=== PATIENT | female | born 1955 | race Caucasian/White ===

== ENCOUNTER → 2017-01-05 | Outpatient (CLI) | payer OTHER ==
--- NOTE | 2017-01-05 16:19 | XR ---
EXAMINATION TYPE: XR chest 2V DATE OF EXAM: 01/05/2017 4:08 PM COMPARISON: Prior chest x-ray October 13, 2011. HISTORY: Back spasms and pain. TECHNIQUE: Frontal and lateral views of the chest are obtained. FINDINGS: There is no focal air space opacity, pleural effusion, or pneumothorax seen. The cardiac silhouette size is within normal limits. Atherosclerotic change in aortic knob is present. The osseo us structures are intact. IMPRESSION: No acute cardiopulmonary process.
--- NOTE | 2017-01-05 16:20 | XR ---
EXAMINATION TYPE: XR thoracic spine complete DATE OF EXAM: 01/05/2017 4:08 PM CLINICAL HISTORY: Mid back pain TECHNIQUE: Frontal, lateral, and swimmer's view of thoracic spine are obtained. COMPARISON: None. FINDINGS: Thoracic spine show slight S-shaped scoliotic curvature without evidence of acute fracture or dislocation. Vertebral body heights and disc space heights are preserved. Mild to moderate multil evel anterior and lateral spurring is present. Visualized ribs are unremarkable bilaterally. IMPRESSION: Slight S-shaped scoliotic curvature with mild to moderate multilevel spurring.
== END | disposition home or self-care (01) ==
LOC: RADXRMAIN 15:40
PROVIDERS: ATTEND Family Medicine
DX: M41.9 Scoliosis, unspecified (principal); M46.04 Spinal enthesopathy, thoracic region; M54.6 Pain in thoracic spine
CPT/HCPCS: 71020; 72072

== ENCOUNTER 2017-08-19 16:28 | Observation (INO) | payer OTHER ==
[2017-08-19] MEDS ORDERED: SODIUM CHLORIDE 0.9% 1,000 ML IV STA (16:51)
[2017-08-19] MEDS ORDERED: NITROGLYCERIN SL TABS 0.4 MG TAB SUBLINGUAL STA (16:51)
[2017-08-19] MEDS ORDERED: ASPIRIN 81 MG PO STA (16:51)
--- NOTE | 2017-08-19 16:55 | ED ---
Chest Pain HPI - General Chief Complaint: Chest Pain Stated Complaint: chest pain Time Seen by Provider: 08/19/17 16:39 Source: patient, RN notes reviewed Mode of arrival: wheelchair Limitations: no limitations - History of Present Illness Initial Comments: This is a 61-year-old female who was a former smoker who states she quit 6 years ago who states she's been having some left-sided chest heaviness also some sharp left shoulder pain and back pain over last 1-2 days. She has had some shortness of breath with that she's had palpitations for 2 days no fevers chills nausea is ongoing sweats she states was shoulder pain is worse with certain movements of her head and neck. She's had no cough no phlegm production no other complaints. No prior history of heart or lung disease that she is aware of. MD Complaint: chest pain, other - Related Data Home Medications Medication Instructions Recorded Confirmed Omeprazole [PriLOSEC] 20 mg PO QAM 10/21/16 08/19/17 ALPRAZolam [Xanax] 0.5 mg PO BID PRN 08/19/17 08/19/17 Atorvastatin Calcium [Lipitor] 20 mg PO HS 08/19/17 08/19/17 Citalopram Hydrobromide [CeleXA] 20 mg PO QAM 08/19/17 08/19/17 Zolpidem [Ambien] 10 mg PO HS PRN 08/19/17 08/19/17 Allergies Allergy/AdvReac Type Severity Reaction Status Date / Time venom-honey bee Allergy Dyspnea/Itc Verified 08/19/17 16:55 [bee venom (honey bee)] elizabet Review of Systems ROS Statement: Those systems with pertinent positive or pertinent negative responses have been documented in the HPI. ROS Other: All systems not noted in ROS Statement are negative. EKG Findings - EKG Results: EKG: interpreted by SHIRLEY, sinus rhythm (Sinus rhythm with a rate 95. Interval 162 QRS duration 80 daily since QTC of 352/442 this is a normal-appearing EKG.) Past Medical History Past Medical History: GERD/Reflux, Hyperlipidemia Additional Past Medical History / Comment(s): Hx Endometriosis History of Any Multi-Drug Resistant Organisms: None Reported Past Surgical History: Hysterectomy, Joint Replacement, Orthopedic Surgery, Tonsillectomy, Tubal Ligation Additional Past Surgical History / Comment(s): 10/27/16 total L knee arthroplasty. Other surgical hx: 02/15/16 LEFT KNEE ARTHROSCOPY. Laparoscopy, D&C, BLADDER SUSPENSION Past Anesthesia/Blood Transfusion Reactions: No Reported Reaction Additional Past Anesthesia/Blood Transfusion Reaction / Comment(s): VERY ANXIOUS WITH THE ANTICIPATION OF A SPINAL. Past Psychological History: Depression Smoking Status: Former smoker Past Alcohol Use History: Rare Past Drug Use History: None Reported - Past Family History Father Family Medical History: CVA/TIA Sister(s) Family Medical History: Cancer, Musculoskeletal Disorder Additional Family Medical History / Comment(s): Maternal Grandmother-Throat cancer General Exam - General Exam Comments Initial Comments: This is a well-developed well-nourished awake alert oriented 3 female Limitations: no limitations General appearance: alert, anxious Head exam: Present: atraumatic, normocephalic, normal inspection Eye exam: Present: normal appearance, PERRL, EOMI. Absent: scleral icterus, conjunctival injection, periorbital swelling ENT exam: Present: normal exam, mucous membranes moist Neck exam: Present: normal inspection, tenderness (Some tenderness palpation of the left trapezius musculature which does reproduce the pain in her neck), full ROM. Absent: meningismus, lymphadenopathy Respiratory exam: Present: normal lung sounds bilaterally, chest wall tenderness. Absent: respiratory distress, wheezes, rales, rhonchi, stridor Cardiovascular Exam: Present: normal rhythm, tachycardia, normal heart sounds. Absent: systolic murmur, diastolic murmur, rubs, gallop, clicks GI/Abdominal exam: Present: soft, normal bowel sounds. Absent: distended, tenderness, guarding, rebound, rigid Extremities exam: Present: normal inspection, full ROM, normal capillary refill. Absent: tenderness, pedal edema, joint swelling, calf tenderness Back exam: Present: normal inspection Neurological exam: Present: alert, oriented X3, CN II-XII intact Psychiatric exam: Present: normal affect, normal mood Skin exam: Present: warm, dry, intact, normal color. 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 She is feeling somewhat diaphoretic. X-ray was negative. I did discuss findings her and her family patient will be admitted for evaluation by cardiology. I did discuss case with Dr. Womack Critical Care Time Critical Care Time: Yes Critical Care Time: 31 minutes of critical care time which includes initial presentation with history physical labs x-rays reevaluation of the patient response to therapy. Discussed with the patient family regarding the findings. Discussed with the admitting physician admission orders and documentation of the above Disposition Clinical Impression: Unstable angina pectoris, Chest pain Disposition: ADMITTED IP TO THIS [facility] Condition: Stable Referrals: Jose Womack DO [Primary Care Provider] - 1-2 days
[2017-08-19 17:04] LABS: Basophils # (A) 0.1 k/uL (0-0.2); Basophils % (A) 1 %; CHCM 35.5; Eosinophils # (A) 0.1 k/uL (0-0.7); Eosinophils % (A) 1 %; HCT 43.8 % (34.0-46.0); HGB 14.8 gm/dL (11.4-16.0); Luc # (Auto) 0.07; Luc % (Auto) 1; Lymphocytes # (A) 3.1 k/uL (1.0-4.8); Lymphocytes % (A) 28 %; MCH 32.6 pg (25.0-35.0); MCHC 33.8 g/dL (31.0-37.0); MCV 96.4 fL (80.0-100.0); Mean Platelet Volume 7.5; Monocytes # (A) 0.3 k/uL (0-1.0); Monocytes % (A) 3 %; Neutrophils # (A) 7.4 k/uL (1.3-7.7); Neutrophils % (A) 66 %; RBC 4.54 m/uL (3.80-5.40); RDW 13.2 % (11.5-15.5); WBC 11.1 k/uL (3.8-10.6); WBC (Perox) 10.71
[2017-08-19 17:14] LABS: ALT 40 U/L (9-52); AST 31 U/L (14-36); Alkaline Phosphatase 97 U/L (38-126); Anion Gap 15 mmol/L; Blood Urea Nitrogen 20 mg/dL (7-17); Calcium 9.5 mg/dL (8.4-10.2); Carbon Dioxide 19 mmol/L (22-30); Chloride 106 mmol/L (98-107); Glucose 160 mg/dL (74-99); Magnesium 1.9 mg/dL (1.6-2.3); Non-African American GFR(MDRD) >60 (>60 ml/min/1.73 sqM); Potassium 4.1 mmol/L (3.5-5.1); Sodium 140 mmol/L (137-145); Total Bilirubin 0.3 mg/dL (0.2-1.3); Total Protein 7.5 g/dL (6.3-8.2)
[2017-08-19 17:17] LABS: Creatine Kinase 53 U/L (30-135)
[2017-08-19 17:23] LABS: Partial Thromboplastin Time 22.5 sec (22.0-30.0); Prothrombin Time 10.1 sec (9.0-12.0)
[2017-08-19 17:29] LABS: Creatine Kinase MB 0.8 ng/mL (0.0-2.4); Troponin I <0.012 ng/mL (0.000-0.034)
--- NOTE | 2017-08-19 17:45 | XR ---
EXAMINATION TYPE: XR chest 2V DATE OF EXAM: 08/19/2017 COMPARISON: 01/05/2017 HISTORY: Left-sided chest pain and dyspnea TECHNIQUE: Frontal and lateral views of the chest are obtained. FINDINGS: There is no focal air space opacity, pleural effusion, or pneumothorax seen. The cardiac silhouette size is within normal limits. The osseous structures are intact. IMPRESSION: No acute cardiopulmonary process.
[2017-08-19] MEDS ORDERED: NITROGLYCERIN SL TABS 0.4 MG TAB SUBLINGUAL PRN (18:10)
[2017-08-19] MEDS ORDERED: ZOLPIDEM 10 MG TAB PO PRN (18:13)
[2017-08-19] MEDS ORDERED: ALPRAZolam 0.5 MG TAB PO PRN (18:13)
[2017-08-19] MEDS ORDERED: HEPARIN SODIUM,PORCINE/D5W PMX 25,000 UNIT in DEXTROSE/WATER 1 500ML.BAG IV SCH (18:15)
[2017-08-19] MEDS ORDERED: SODIUM CHLORIDE 0.9% 1,000 ML IV SCH (18:15)
[2017-08-19] MEDS: HEPARIN SODIUM,PORCINE 5,000 UNIT/ML 1 ML VIAL IV ONE (18:30)
[2017-08-19] MEDS ORDERED: ATORVASTATIN 20 MG TAB PO SCH (21:00)
[2017-08-19 23:18] LABS: Creatine Kinase 43 U/L (30-135)
[2017-08-19 23:32] LABS: Creatine Kinase MB 0.6 ng/mL (0.0-2.4); Troponin I <0.012 ng/mL (0.000-0.034)
[2017-08-20] MEDS: NITROGLYCERIN OINT 1 INCH/GM PACKET TOPICAL SCH ×3 (00:44→14:25)
[2017-08-20] MEDS ORDERED: HEPARIN SODIUM,PORCINE 5,000 UNIT/ML 1 ML VIAL IV PRN (04:02)
[2017-08-20] MEDS: HEPARIN SODIUM,PORCINE 5,000 UNIT/ML 1 ML VIAL IV ONE (04:02)
[2017-08-20 06:16] LABS: Basophils % (A) 1 %; CH 33.6; CHCM 34.1; Eosinophils # (A) 0.1 k/uL (0-0.7); Eosinophils % (A) 1 %; HCT 41.2 % (34.0-46.0); HDW 2.46; HGB 13.4 gm/dL (11.4-16.0); Luc # (Auto) 0.11; Luc % (Auto) 1; Lymphocytes % (A) 46 %; MCH 32.2 pg (25.0-35.0); MCHC 32.4 g/dL (31.0-37.0); MCV 99.2 fL (80.0-100.0); Mean Platelet Volume 7.3; Monocytes # (A) 0.3 k/uL (0-1.0); Monocytes % (A) 4 %; Neutrophils # (A) 4.1 k/uL (1.3-7.7); Neutrophils % (A) 47 %; RBC 4.16 m/uL (3.80-5.40); RDW 13.4 % (11.5-15.5); WBC 8.7 k/uL (3.8-10.6); WBC (Perox) 7.93
[2017-08-20 06:24] LABS: Cholesterol 188 mg/dL (<200); HDL Cholesterol 53 mg/dL (40-60)
[2017-08-20 06:42] LABS: Creatine Kinase 40 U/L (30-135)
[2017-08-20 06:53] LABS: Creatine Kinase MB 0.6 ng/mL (0.0-2.4); Troponin I <0.012 ng/mL (0.000-0.034)
[2017-08-20] MEDS ORDERED: PANTOPRAZOLE 40 MG TABLET PO SCH (07:30)
[2017-08-20 08:12] VITALS: RESP 18
[2017-08-20] MEDS ORDERED: DOBUTamine DRIP for NUC MED 500 MG in DEXTROSE/WATER 1 250ML.BAG IV ONE (08:38)
--- NOTE | 2017-08-20 08:47 | P.CRDCN ---
History of Present Illness History of present illness: 61-year-old female presenting with fluttering in the chest and associated chest discomfort and dizziness but no loss of consciousness. Normal cardiac enzymes normal. ECG history of dyslipidemia no arrhythmias documented at this time. Normal cardiac enzymes normal D-dimer test Suggest TSH level Dobutamine stress echo today to look for any underlying ischemia as well as possibly trigger any arrhythmias to make a diagnosis. If this is normal then an event monitor as an outpatient and the patient has been instructed tract with the monitor and she has the palpitations Past Medical History Past Medical History: GERD/Reflux, Hyperlipidemia, Osteoarthritis (OA) Additional Past Medical History / Comment(s): Hx Endometriosis, diverticulitis" i always have diarrhea" History of Any Multi-Drug Resistant Organisms: None Reported Past Surgical History: Hysterectomy, Joint Replacement, Orthopedic Surgery, Tonsillectomy, Tubal Ligation Additional Past Surgical History / Comment(s): 10/27/16 total L knee arthroplasty. Other surgical hx: 02/15/16 LEFT KNEE ARTHROSCOPY. Laparoscopy, D&C, BLADDER SUSPENSION Past Anesthesia/Blood Transfusion Reactions: No Reported Reaction Additional Past Anesthesia/Blood Transfusion Reaction / Comment(s): VERY ANXIOUS WITH THE ANTICIPATION OF A SPINAL. Smoking Status: Former smoker - Past Family History Father Family Medical History: CVA/TIA Sister(s) Family Medical History: Cancer, Musculoskeletal Disorder Additional Family Medical History / Comment(s): Maternal Grandmother-Throat cancer Medications and Allergies Home Medications Medication Instructions Recorded Confirmed Type Omeprazole [PriLOSEC] 20 mg PO QAM 10/21/16 08/19/17 History ALPRAZolam [Xanax] 0.5 mg PO BID PRN 08/19/17 08/19/17 History Atorvastatin Calcium [Lipitor] 20 mg PO HS 08/19/17 08/19/17 History Citalopram Hydrobromide [CeleXA] 30 mg PO QAM 08/19/17 08/19/17 History Zolpidem [Ambien] 10 mg PO HS 08/19/17 08/19/17 History Allergies Allergy/AdvReac Type Severity Reaction Status Date / Time venom-honey bee Allergy Dyspnea/Itc Verified 08/19/17 16:55 [bee venom (honey bee)] elizabet Physical Exam Vitals: Vital Signs Temp Pulse Pulse Pulse Resp BP BP 08/20/17 08:00 97.8 F 69 18 110/63 08/20/17 04:00 16 08/20/17 03:40 97.7 F 68 16 123/64 08/20/17 00:00 98.0 F 71 16 137/75 08/19/17 23:00 16 08/19/17 21:41 97.6 F 69 18 153/62 08/19/17 21:17 97.6 F 69 18 126/56 08/19/17 19:19 80 18 111/63 08/19/17 18:39 80 18 113/64 08/19/17 18:08 74 18 106/65 08/19/17 17:30 92 18 121/61 08/19/17 17:07 88 20 117/75 08/19/17 16:53 88 08/19/17 16:30 97.1 F L 102 H 18 145/71 Pulse Ox 08/20/17 08:00 98 08/20/17 04:00 08/20/17 03:40 98 08/20/17 00:00 98 08/19/17 23:00 08/19/17 21:41 96 08/19/17 21:17 98 08/19/17 19:19 96 08/19/17 18:39 99 08/19/17 18:08 98 08/19/17 17:30 98 08/19/17 17:07 99 08/19/17 16:53 08/19/17 16:30 99 Intake and Output 08/19/17 08/20/17 08/20/17 22:59 06:59 14:59 Other: # Voids 1 Weight 74.843 kg Results 08/20/17 05:26 08/19/17 16:40 Cardiac Enzymes 08/19/17 08/19/17 08/19/17 Range/Units 16:40 16:40 22:37 AST 31 (14-36) U/L CK-MB (CK-2) 0.8 0.6 (0.0-2.4) ng/mL Troponin I <0.012 <0.012 (0.000-0.034) ng/mL 08/20/17 Range/Units 05:26 AST (14-36) U/L CK-MB (CK-2) 0.6 (0.0-2.4) ng/mL Troponin I <0.012 (0.000-0.034) ng/mL Coagulation 08/19/17 08/20/17 Range/Units 16:40 01:06 PT 10.1 (9.0-12.0) sec APTT 22.5 31.8 H (22.0-30.0) sec Lipids 08/20/17 Range/Units 05:26 Triglycerides 238 H (<150) mg/dL Cholesterol 188 (<200) mg/dL HDL Cholesterol 53 (40-60) mg/dL CBC 08/19/17 08/20/17 Range/Units 16:40 05:26 WBC 11.1 H 8.7 (3.8-10.6) k/uL RBC 4.54 4.16 (3.80-5.40) m/uL Hgb 14.8 13.4 (11.4-16.0) gm/dL Hct 43.8 41.2 (34.0-46.0) % Plt Count 356 287 (150-450) k/uL Comprehensive Metabolic Panel 08/19/17 Range/Units 16:40 Sodium 140 (137-145) mmol/L Potassium 4.1 (3.5-5.1) mmol/L Chloride 106 (98-107) mmol/L Carbon Dioxide 19 L (22-30) mmol/L BUN 20 H (7-17) mg/dL Creatinine 0.89 (0.52-1.04) mg/dL Glucose 160 H (74-99) mg/dL Calcium 9.5 (8.4-10.2) mg/dL AST 31 (14-36) U/L ALT 40 (9-52) U/L Alkaline Phosphatase 97 (38-126) U/L Total Protein 7.5 (6.3-8.2) g/dL Albumin 4.4 (3.5-5.0) g/dL Current Medications Generic Name Dose Route Start Last Admin Trade Name Freq PRN Reason Stop Dose Admin Alprazolam 0.5 mg 08/19/17 18:13 08/19/17 23:08 Xanax PO 0.5 mg BID PRN Administration Anxiety Aspirin 325 mg 08/20/17 09:00 Aspirin PO DAILY YESSICA Atorvastatin Calcium 20 mg 08/19/17 21:00 08/19/17 23:08 Lipitor PO 20 mg HS YESSICA Administration Citalopram Hydrobromide 20 mg 08/20/17 09:00 Celexa PO QAM YESSICA Heparin Sodium (Porcine) 0 unit 08/20/17 04:02 Heparin IV PER PROTOCOL PRN Low PTT Protocol Heparin Sodium/Dextrose 25,000 500 mls @ 17.96 mls/hr 08/19/17 18:15 18:30 unit/ IV Solution IV 12 units/kg/hr .Q24H YESSICA 17.96 mls/hr Protocol Administration 12 UNITS/KG/HR Sodium Chloride 1,000 mls @ 20 mls/hr 08/19/17 18:15 08/19/17 18:41 Saline 0.9% IV 20 mls/hr .Q24H YESSICA Administration Nitroglycerin 1 inch 08/20/17 00:00 08/20/17 00:44 Nitro-Bid Oint TOPICAL Not Given Q6HR [facility] Nitroglycerin 0.4 mg 08/19/17 18:10 Nitrostat SUBLINGUAL Q5M PRN Chest Pain Pantoprazole Sodium 40 mg 08/20/17 07:30 Protonix PO AC-BRKFST [facility] Zolpidem Tartrate 10 mg 08/19/17 18:13 08/19/17 23:08 Ambien PO 10 mg HS PRN Administration Insomnia Intake and Output 08/19/17 08/20/17 08/20/17 22:59 06:59 14:59 Other: # Voids 1 Weight 74.843 kg 08/20/17 05:26 08/19/17 16:40
[2017-08-20] MEDS ORDERED: ASPIRIN 325 MG TAB PO SCH (09:00)
[2017-08-20] MEDS ORDERED: CITALOPRAM HYDROBROMIDE 20 MG TAB PO SCH (09:00)
--- NOTE | 2017-08-20 10:36 | ECHOS ---
STRESS ECHOCARDIOGRAM INDICATIONS: Chest pain. MEDICATIONS:: Prilosec, Lipitor, Xanax, Ambien, Celexa. BASELINE HEART RATE: 65 BASELINE BLOOD PRESSURE: 103/57 MAXIMUM HEART RATE: 131 MAXIMUM BLOOD PRESSURE: 185/69 85% MPHR: 133 100% MPHR: 157 MAXIMUM STAGE REACHED: 3 TOTAL EXERCISE TIME: 8:30 CLINICAL INFORMATION: Patient presented with recurrent chest discomfort and palpitations, normal cardiac enzymes. Baseline heart rate is 65 beats per minute. Baseline blood pressure 103/57 mmHg. Baseline 12-lead ECG shows sinus rhythm with early repolarization abnormality in the high lateral leads. Normal QRS, normal GA interval. Patient received dobutamine infusion per protocol, 30 mcg. Peak heart rate was 131 beats per minute. Normal blood pressure response to exercise. Somewhat blunted heart rate response initially. The patient experienced occasional PVCs and she failed every single PVC and it was similar to her admitting complaints. There was no ECG evidence for ischemia. No evidence for sustained or nonsustained arrhythmias. The baseline 2D echo showed normal LV sinus and systolic function without segmental wall motion abnormalities. During dobutamine infusion, there was a stepwise increment in overall LV contractility without developing of any wall motion abnormality. At recovery, regional global LV systolic function remained normal. IMPRESSION: 1. No ECG or echocardiographic evidence of ischemia. Occasional ventricular premature beats noted which were felt by the patient. 2. Nonsustained arrhythmias. PLAN: Suggest follow up with Dr. Dodd and event monitoring for at least 1 month to document any further ambient arrhythmias. MMODL / IJN: [id number] /
[2017-08-20 11:23] VITALS: BP 155/66; PULSE 73; TEMP 97.5
--- NOTE | 2017-08-20 11:44 | P.CRDCN ---
History of Present Illness Consult date: 08/20/17 History of present illness: This is a 61-year-old pleasant female. Past medical history significant for hyperlipidemia and former smoker. The patient presented to the hospital yesterday with complaints of sharp and heavy left-sided chest pain with radiation to the back and left shoulder. She states this was associated with mild shortness of breath. The symptoms have been intermittent over the past 2-3 days. They're not associated with exertion or activity. She can't specify no specific aggravating or alleviating factors. She follows regularly with her primary care physician. She states she has never had a stress test. 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 She cannot remember the specifics of the findings. Troponin negative 3 EKG normal sinus mechanism d-dimer negative. Upon exam she continues to feel mild mid-sternal chest heaviness. Telemetry overnight indicates sinus rhythm with first degree AVB. Review of Systems Extensive review of systems performed, negative except mentioned in HPI. Past Medical History Past Medical History: GERD/Reflux, Hyperlipidemia, Osteoarthritis (OA) Additional Past Medical History / Comment(s): Hx Endometriosis, diverticulitis" i always have diarrhea" History of Any Multi-Drug Resistant Organisms: None Reported Past Surgical History: Hysterectomy, Joint Replacement, Orthopedic Surgery, Tonsillectomy, Tubal Ligation Additional Past Surgical History / Comment(s): 10/27/16 total L knee arthroplasty. Other surgical hx: 02/15/16 LEFT KNEE ARTHROSCOPY. Laparoscopy, D&C, BLADDER SUSPENSION Past Anesthesia/Blood Transfusion Reactions: No Reported Reaction Additional Past Anesthesia/Blood Transfusion Reaction / Comment(s): VERY ANXIOUS WITH THE ANTICIPATION OF A SPINAL. Smoking Status: Former smoker - Past Family History Father Family Medical History: CVA/TIA Sister(s) Family Medical History: Cancer, Musculoskeletal Disorder Additional Family Medical History / Comment(s): Maternal Grandmother-Throat cancer Medications and Allergies Home Medications Medication Instructions Recorded Confirmed Type Omeprazole [PriLOSEC] 20 mg PO QAM 10/21/16 08/19/17 History ALPRAZolam [Xanax] 0.5 mg PO BID PRN 08/19/17 08/19/17 History Atorvastatin Calcium [Lipitor] 20 mg PO HS 08/19/17 08/19/17 History Citalopram Hydrobromide [CeleXA] 30 mg PO QAM 08/19/17 08/19/17 History Zolpidem [Ambien] 10 mg PO HS 08/19/17 08/19/17 History Allergies Allergy/AdvReac Type Severity Reaction Status Date / Time venom-honey bee Allergy Dyspnea/Itc Verified 08/19/17 16:55 [bee venom (honey bee)] elizabet Physical Exam Vitals: Vital Signs Temp Pulse Pulse Pulse Resp BP BP 08/20/17 08:00 97.8 F 69 18 110/63 08/20/17 04:00 16 08/20/17 03:40 97.7 F 68 16 123/64 08/20/17 00:00 98.0 F 71 16 137/75 08/19/17 23:00 16 08/19/17 21:41 97.6 F 69 18 153/62 08/19/17 21:17 97.6 F 69 18 126/56 08/19/17 19:19 80 18 111/63 08/19/17 18:39 80 18 113/64 08/19/17 18:08 74 18 106/65 08/19/17 17:30 92 18 121/61 08/19/17 17:07 88 20 117/75 08/19/17 16:53 88 08/19/17 16:30 97.1 F L 102 H 18 145/71 Pulse Ox 08/20/17 08:00 98 08/20/17 04:00 08/20/17 03:40 98 08/20/17 00:00 98 08/19/17 23:00 08/19/17 21:41 96 08/19/17 21:17 98 08/19/17 19:19 96 08/19/17 18:39 99 08/19/17 18:08 98 08/19/17 17:30 98 08/19/17 17:07 99 08/19/17 16:53 08/19/17 16:30 99 Intake and Output 08/19/17 08/20/17 08/20/17 22:59 06:59 14:59 Other: # Voids 1 Weight 74.843 kg GENERAL: This is a 61-year-old female in no apparent distress at the time of my examination. HEENT: Head is atraumatic, normocephalic. Pupils are equal, round. Sclerae anicteric. Conjunctivae are clear. Mucous membranes of the mouth are moist. Neck is supple. There is no jugular venous distention. No carotid bruit is heard. LUNGS: Clear to auscultation no wheezes, rales or rhonchi. No chest wall tenderness is noted on palpation or with deep breathing. HEART: Regular rate and rhythm without murmurs, rubs or gallops. S1 and S2 heard. ABDOMEN: Soft, nontender. Bowel sounds are heard. No organomegaly noted. EXTREMITIES: 2+ peripheral pulses with no evidence of peripheral edema and no calf tenderness noted. NEUROLOGIC: Patient is awake, alert and oriented x3. Results 08/20/17 05:26 08/19/17 16:40 Cardiac Enzymes 08/19/17 08/19/17 08/19/17 Range/Units 16:40 16:40 22:37 AST 31 (14-36) U/L CK-MB (CK-2) 0.8 0.6 (0.0-2.4) ng/mL Troponin I <0.012 <0.012 (0.000-0.034) ng/mL 08/20/17 Range/Units 05:26 AST (14-36) U/L CK-MB (CK-2) 0.6 (0.0-2.4) ng/mL Troponin I <0.012 (0.000-0.034) ng/mL Coagulation 08/19/17 08/20/17 Range/Units 16:40 01:06 PT 10.1 (9.0-12.0) sec APTT 22.5 31.8 H (22.0-30.0) sec Lipids 08/20/17 Range/Units 05:26 Triglycerides 238 H (<150) mg/dL Cholesterol 188 (<200) mg/dL HDL Cholesterol 53 (40-60) mg/dL CBC 08/19/17 08/20/17 Range/Units 16:40 05:26 WBC 11.1 H 8.7 (3.8-10.6) k/uL RBC 4.54 4.16 (3.80-5.40) m/uL Hgb 14.8 13.4 (11.4-16.0) gm/dL Hct 43.8 41.2 (34.0-46.0) % Plt Count 356 287 (150-450) k/uL Comprehensive Metabolic Panel 08/19/17 Range/Units 16:40 Sodium 140 (137-145) mmol/L Potassium 4.1 (3.5-5.1) mmol/L Chloride 106 (98-107) mmol/L Carbon Dioxide 19 L (22-30) mmol/L BUN 20 H (7-17) mg/dL Creatinine 0.89 (0.52-1.04) mg/dL Glucose 160 H (74-99) mg/dL Calcium 9.5 (8.4-10.2) mg/dL AST 31 (14-36) U/L ALT 40 (9-52) U/L Alkaline Phosphatase 97 (38-126) U/L Total Protein 7.5 (6.3-8.2) g/dL Albumin 4.4 (3.5-5.0) g/dL Current Medications Generic Name Dose Route Start Last Admin Trade Name Freq PRN Reason Stop Dose Admin Alprazolam 0.5 mg 08/19/17 18:13 08/19/17 23:08 Xanax PO 0.5 mg BID PRN Administration Anxiety Aspirin 325 mg 08/20/17 09:00 Aspirin PO DAILY [facility] Atorvastatin Calcium 20 mg 08/19/17 21:00 08/19/17 23:08 Lipitor PO 20 mg HS YESSICA Administration Citalopram Hydrobromide 20 mg 08/20/17 09:00 Celexa PO QAM [facility] Heparin Sodium (Porcine) 0 unit 08/20/17 04:02 Heparin IV PER PROTOCOL PRN Low PTT Protocol Heparin Sodium/Dextrose 25,000 500 mls @ 17.96 mls/hr 08/19/17 18:15 18:30 unit/ IV Solution IV 12 units/kg/hr .Q24H YESSICA 17.96 mls/hr Protocol Administration 12 UNITS/KG/HR Sodium Chloride 1,000 mls @ 20 mls/hr 08/19/17 18:15 08/19/17 18:41 Saline 0.9% IV 20 mls/hr .Q24H YESSICA Administration Nitroglycerin 1 inch 08/20/17 00:00 08/20/17 00:44 Nitro-Bid Oint TOPICAL Not Given Q6HR [facility] Nitroglycerin 0.4 mg 08/19/17 18:10 Nitrostat SUBLINGUAL Q5M PRN Chest Pain Pantoprazole Sodium 40 mg 08/20/17 07:30 Protonix PO AC-BRKFST YESSICA Zolpidem Tartrate 10 mg 08/19/17 18:13 08/19/17 23:08 Ambien PO 10 mg HS PRN Administration Insomnia Intake and Output 08/19/17 08/20/17 08/20/17 22:59 06:59 14:59 Other: # Voids 1 Weight 74.843 kg 08/20/17 05:26 08/19/17 16:40 EKG Interpretations (text) EKG indicates a normal sinus mechanism with no acute ST or T-wave abnormality. Assessment and Plan Plan: ASSESSMENT 1. Chest pain, atypical 2. Dyslipidemia, maintained on Lipitor PLAN Please see recommendations from Dr. Lu. Nurse Practitioner note has been reviewed, I agree with a documented findings and plan of care. Patient was seen and examined.
--- NOTE | 2017-08-20 13:14 | P.DS ---
Providers Date of admission: 08/19/17 18:10 Attending physician: Jose Womack Consults: 08/19/17 18:10 Consult Physician Urgent Consulting Provider: Jah Zarate Consult Reason/Comments: Chest pain Do you want consulting provider notified?: Yes Primary care physician: Jose Womack Hospital Course: Please refer to my HPI Patient Condition at Discharge: Stable Plan - Discharge Summary New Discharge Prescriptions: No Action Omeprazole [PriLOSEC] 20 mg PO QAM Atorvastatin Calcium [Lipitor] 20 mg PO HS ALPRAZolam [Xanax] 0.5 mg PO BID PRN PRN Reason: Anxiety Zolpidem [Ambien] 10 mg PO HS Citalopram Hydrobromide [CeleXA] 30 mg PO QAM Discharge Medication List Omeprazole [PriLOSEC] 20 mg PO QAM 10/21/16 [History] ALPRAZolam [Xanax] 0.5 mg PO BID PRN 08/19/17 [History] Atorvastatin Calcium [Lipitor] 20 mg PO HS 08/19/17 [History] Citalopram Hydrobromide [CeleXA] 30 mg PO QAM 08/19/17 [History] Zolpidem [Ambien] 10 mg PO HS 08/19/17 [History] Follow up Appointment(s)/Referral(s): Abhishek Dodd MD [STAFF PHYSICIAN] - 1 Week (Appointment is on September 17 @ 9 :15am) Jose Womack DO [Primary Care Provider] - 1-2 days Patient Instructions/Handouts: Chest Pain (GEN) Discharge Disposition: HOME SELF-CARE
--- NOTE | 2017-08-20 13:14 | P.HPIM ---
History of Present Illness This is a 61-year-old pleasant female. Past medical history significant for hyperlipidemia and former smoker. The patient presented to the hospital yesterday with complaints of sharp and heavy left-sided chest pain with radiation to the back and left shoulder. She states this was associated with mild shortness of breath. The symptoms have been intermittent over the past 2-3 days. They're not associated with exertion or activity. She can't specify no specific aggravating or alleviating factors. She follows regularly with her primary care physician. She states she has never had a stress test. She saw make up artist briefly many years ago worn an event monitor. She cannot remember the specifics of the findings. Troponin negative 3 EKG normal sinus mechanism d-dimer negative. Upon exam she continues to feel mild mid-sternal chest heaviness. Telemetry overnight indicates sinus rhythm with first degree AVB. Patient underwent stress us which was negative, because of arrhythmia and palpitations which can cause chest pain and lightheadedness patient will be discharged on even monitor. Follow with some on as an outpatient. Patient chest pain completely resolved at this point of time. Review of Systems REVIEW OF SYSTEMS: CONSTITUTIONAL: No fever, no malaise, no fatigue. HEENT: No recent visual problems or hearing problems. Denied any sore throat. CARDIOVASCULAR: No orthopnea, PND, no syncope. PULMONARY: No shortness of breath, no cough, no hemoptysis. GASTROINTESTINAL: No diarrhea, no nausea, no vomiting, no abdominal pain. Normoactive bowel sounds. NEUROLOGICAL: No headaches, no weakness, no numbness. HEMATOLOGICAL: Denies any bleeding or petechiae. GENITOURINARY: Denies any burning micturition, frequency, or urgency. MUSCULOSKELETAL/RHEUMATOLOGICAL: Denies any joint pain, swelling, or any muscle pain. ENDOCRINE: Denies any polyuria or polydipsia. The rest of the 14-point review of systems is negative. Past Medical History Past Medical History: GERD/Reflux, Hyperlipidemia, Osteoarthritis (OA) Additional Past Medical History / Comment(s): Hx Endometriosis, diverticulitis" i always have diarrhea" History of Any Multi-Drug Resistant Organisms: None Reported Past Surgical History: Hysterectomy, Joint Replacement, Orthopedic Surgery, Tonsillectomy, Tubal Ligation Additional Past Surgical History / Comment(s): 10/27/16 total L knee arthroplasty. Other surgical hx: 02/15/16 LEFT KNEE ARTHROSCOPY. Laparoscopy, D&C, BLADDER SUSPENSION Past Anesthesia/Blood Transfusion Reactions: No Reported Reaction Additional Past Anesthesia/Blood Transfusion Reaction / Comment(s): VERY ANXIOUS WITH THE ANTICIPATION OF A SPINAL. Smoking Status: Former smoker - Past Family History Father Family Medical History: CVA/TIA Sister(s) Family Medical History: Cancer, Musculoskeletal Disorder Additional Family Medical History / Comment(s): Maternal Grandmother-Throat cancer Medications and Allergies Home Medications Medication Instructions Recorded Confirmed Type Omeprazole [PriLOSEC] 20 mg PO QAM 10/21/16 08/19/17 History ALPRAZolam [Xanax] 0.5 mg PO BID PRN 08/19/17 08/19/17 History Atorvastatin Calcium [Lipitor] 20 mg PO HS 08/19/17 08/19/17 History Citalopram Hydrobromide [CeleXA] 30 mg PO QAM 08/19/17 08/19/17 History Zolpidem [Ambien] 10 mg PO HS 08/19/17 08/19/17 History Allergies Allergy/AdvReac Type Severity Reaction Status Date / Time venom-honey bee Allergy Dyspnea/Itc Verified 08/19/17 16:55 [bee venom (honey bee)] elizabet Physical Exam Vitals: Vital Signs Temp Pulse Pulse Pulse Resp BP BP 08/20/17 11:22 97.5 F L 73 18 155/66 08/20/17 08:00 97.8 F 69 18 110/63 08/20/17 04:00 16 08/20/17 03:40 97.7 F 68 16 123/64 08/20/17 00:00 98.0 F 71 16 137/75 08/19/17 23:00 16 08/19/17 21:41 97.6 F 69 18 153/62 08/19/17 21:17 97.6 F 69 18 126/56 08/19/17 19:19 80 18 111/63 08/19/17 18:39 80 18 113/64 08/19/17 18:08 74 18 106/65 08/19/17 17:30 92 18 121/61 08/19/17 17:07 88 20 117/75 08/19/17 16:53 88 08/19/17 16:30 97.1 F L 102 H 18 145/71 Pulse Ox 09/21/17 11:22 97 08/20/17 08:00 98 08/20/17 04:00 08/20/17 03:40 98 08/20/17 00:00 98 08/19/17 23:00 08/19/17 21:41 96 08/19/17 21:17 98 08/19/17 19:19 96 08/19/17 18:39 99 08/19/17 18:08 98 08/19/17 17:30 98 08/19/17 17:07 99 08/19/17 16:53 08/19/17 16:30 99 Intake and Output 08/19/17 08/20/17 08/20/17 22:59 06:59 14:59 Other: # Voids 1 Weight 74.843 kg PHYSICAL EXAMINATION: GENERAL: The patient is alert and oriented x3, not in any acute distress. Well developed, well nourished. HEENT: Pupils are round and equally reacting to light. EOMI. No scleral icterus. No conjunctival pallor. Normocephalic, atraumatic. No pharyngeal erythema. No thyromegaly. CARDIOVASCULAR: S1 and S2 present. No murmurs, rubs, or gallops. PULMONARY: Chest is clear to auscultation, no wheezing or crackles. ABDOMEN: Soft, nontender, nondistended, normoactive bowel sounds. No palpable organomegaly. MUSCULOSKELETAL: No joint swelling or deformity. EXTREMITIES: No cyanosis, clubbing, or pedal edema. NEUROLOGICAL: Gross neurological examination did not reveal any focal deficits. SKIN: No rashes. Results CBC & Chem 7: 08/20/17 05:26 08/19/17 16:40 Labs: Abnormal Lab Results - Last 24 Hours (Table) 08/19/17 08/19/17 08/20/17 Range/Units 16:40 16:40 01:06 WBC 11.1 H (3.8-10.6) k/uL APTT 31.8 H (22.0-30.0) sec Carbon Dioxide 19 L (22-30) mmol/L BUN 20 H (7-17) mg/dL Glucose 160 H (74-99) mg/dL Triglycerides (<150) mg/dL 08/20/17 Range/Units 05:26 WBC (3.8-10.6) k/uL APTT (22.0-30.0) sec Carbon Dioxide (22-30) mmol/L BUN (7-17) mg/dL Glucose (74-99) mg/dL Triglycerides 238 H (<150) mg/dL Thrombosis Risk Factor Assmnt - Choose All That Apply Any of the Below Risk Factors Present?: Yes Each Factor Represents 1 point: Obesity (BMI >25) Other Risk Factors: Yes Each Risk Factor Represents 2 Points: Age 61-74 years Other congenital or acquired thrombophilia - If yes, enter type in comment: No Thrombosis Risk Factor Assessment Total Risk Factor Score: 3 Thrombosis Risk Factor Assessment Level: Moderate Risk Assessment and Plan Plan: #1 chest pain, rule out acute coronary syndromes unstable angina, patient stresses is negative. #2 palpitations nature of arrhythmia is unknown patient is being discharged on even monitor #3 shortness of breath secondary to possibly cardiac arrhythmia. #4 hyperlipidemia #5 osteoarthritis Patient will be discharged today with even monitor.
== END 2017-08-20 14:18 | disposition home or self-care (01) ==
LOC: EC 16:28 → 3OBS 18:10
PROVIDERS: ADMIT Family Medicine; ATTEND Family Medicine
DX: R07.89 Other chest pain (principal); R00.2 Palpitations; R06.02 Shortness of breath; R61 Generalized hyperhidrosis; R42 Dizziness and giddiness; E78.5 Hyperlipidemia, unspecified; I44.0 Atrioventricular block, first degree; M19.90 Unspecified osteoarthritis, unspecified site; K21.9 Gastro-esophageal reflux disease without esophagitis; F32.9 Major depressive disorder, single episode, unspecified; F41.9 Anxiety disorder, unspecified; E66.9 Obesity, unspecified; Z68.25 Body mass index [BMI] 25.0-25.9, adult; Z79.899 Other long term (current) drug therapy; Z91.030 Bee allergy status; Z87.891 Personal history of nicotine dependence; Z82.3 Family history of stroke
CPT/HCPCS: 36415; 71020; 80053; 80061; 82550; 82553; 83605; 83735; 83880; 84443; 84484; 85025; 85379; 85610; 85730; 93005; 93017; 93350; 96361; 96365; 96366; 96376; 99291

== ENCOUNTER → 2017-09-03 | Outpatient (CLI) | payer OTHER ==
--- NOTE | 2017-09-03 23:15 | MR ---
EXAMINATION TYPE: MR knee RT wo con DATE OF EXAM: 09/03/2017 COMPARISON: NONE HISTORY: TECHNIQUE: Multiplanar, multisequence imaging of the right knee is performed without IV contrast. FINDINGS: The anterior and posterior cruciate ligaments are intact. There is a minute knee joint effusion. The collateral ligaments are intact. The medial and lateral menisci appear intact. I see no focal bon e destruction. Knee joint spaces are fairly well-maintained. There are a few varicose veins on the la teral thigh. The remainder of exam is unremarkable. IMPRESSION: No evidence of meniscal or ligamentous tear. Small knee joint effusion.
== END | disposition home or self-care (01) ==
LOC: RADMRIMAIN 19:26
PROVIDERS: ATTEND Orthopaedic Surgery
DX: M25.461 Effusion, right knee (principal)

== ENCOUNTER → 2018-07-07 | Outpatient (CLI) | payer MEDICARE ==
--- NOTE | 2018-07-07 13:50 | MR ---
EXAMINATION TYPE: MR knee RT wo con DATE OF EXAM: 07/07/2018 COMPARISON: 09/03/2017 HISTORY: Right knee pain TECHNIQUE: Multiplanar, multisequence imaging of the right knee is performed without IV contrast. FINDINGS: MEDIAL MENISCUS: Some subtle linear signal in the horizontal direction in the posterior horn medial m eniscus. Some mild type I internal derangement may be present. Anterior horn may has some mild medial internal derangement. LATERAL MENISCUS: Anterior and posterior horns are intact without tear. CRUCIATE LIGAMENTS: The anterior and posterior cruciate ligaments are intact and unremarkable. COLLATERAL LIGAMENTS: The medial collateral ligament and lateral collateral ligament complex are inta ct and unremarkable. EXTENSOR MECHANISM: Visualized quadriceps and patellar tendons are intact. EFFUSION: There is a small suprapatellar joint effusion. Small amount of fluid is posterior joint sp truong. POPLITEAL CYST: 1.0 x 2.9 cm popliteal cyst may be present. TRICOMPARTMENT SPACES: There is narrowing of the patellofemoral joint space. Medial lateral compartme nt joint spaces appear more relatively preserved. CARTILAGE: There is narrowing of the patellofemoral cartilage along the lateral femoral condyle. More diffuse mild thinning of the articular cartilage is present within the medial and lateral compartmen t joint spaces. BONE MARROW SIGNAL: No focal abnormal marrow signal is appreciated. OTHER: No additional significant abnormality is appreciated. IMPRESSION: Horizontal internal derangement posterior horn medial meniscus. Some mild internal derangement may be in the anterior horn medial meniscus. 2. Small joint effusion. 3. Popliteal cyst. 4. Osteoarthritic degenerative change, greatest in patellofemoral joint space laterally.
== END | disposition home or self-care (01) ==
LOC: RADMRIMAIN 06:44
PROVIDERS: ATTEND Orthopaedic Surgery
DX: M23.321 Other meniscus derangements, posterior horn of medial meniscus, right knee (principal); M71.21 Synovial cyst of popliteal space [Baker], right knee; M17.11 Unilateral primary osteoarthritis, right knee

== ENCOUNTER 2018-12-09 06:10 | Day surgery (SDC) | payer MEDICARE, OTHER ==
[2018-12-07 11:35] VITALS: BMI 28.0
--- NOTE | 2018-12-08 16:04 | HP ---
HISTORY AND PHYSICAL REASON FOR ADMISSION: Surgery scheduled for 12/09/2018. Hyacinth Moon is a 63-year-old patient seen with progressive right knee pain. We discussed options for treatment. She elected to proceed with right knee arthroscopy. Consent was obtained. PAST MEDICAL HISTORY: Hyperlipidemia, gastroesophageal reflux disease. PAST SURGICAL HISTORY: Hysterectomy, bladder suspension surgery, left total knee arthroplasty. MEDICATIONS: Celexa, Lipitor, Xanax, omeprazole. ALLERGIES: ARE NORCO. SOCIAL HISTORY: Patient denies tobacco use. PHYSICAL EXAMINATION: Evaluation of the right knee range of motion is 0 to 130 degrees. Tenderness medial joint line. Positive medial Nessa's. Crepitus along the patellofemoral compartment, medial joint line. Ligaments stable. Hip rotation without pain. Distal neurovascular exam is intact. RADIOGRAPHS: Radiographs of the right knee reveal osteoarthritic changes. MRI of the right knee reveals suspicion for meniscal tear. IMPRESSION: 1. Internal derangement, right knee with medial meniscal tear. 2. Right knee osteoarthritis. PLAN: Right knee arthroscopy with partial meniscectomy and debridement. Surgery is scheduled for 12/09/2018. MMODL / IJN: [id number] /
[~2018-12-09 06:10] MED LIST: LIDOCAINE 1% 20 ML VIAL (10MG/ML) FOR IV START INTRADERMA PRN; ONDANSETRON 4 MG/2 ML VIAL IVP ONE; ceFAZolin IN SWFI 2 GM/20 ML SYRINGE IVP ONE
[2018-12-09 06:46] VITALS: RESP 16
[2018-12-09] MEDS: LACTATED RINGERS 1,000 ML IV SCH ×3 (06:47→08:50)
[2018-12-09] MEDS ORDERED: KETOROLAC 30 MG/ML 1 ML VIAL ONE (07:24)
[2018-12-09] MEDS ORDERED: LIDOCAINE 1% INJ 10MG/ML (20 ML MDV) ONE (07:24)
[2018-12-09] MEDS ORDERED: GLYCOPYRROLATE 0.2 MG/ML 2 ML VIAL ONE (07:24)
[2018-12-09] MEDS ORDERED: fentaNYL (PF) 50 MCG/ML 2 ML AMP ONE (07:24)
[2018-12-09] MEDS ORDERED: MIDAZOLAM 2 MG/2 ML VIAL ONE (07:24)
[2018-12-09] MEDS ORDERED: SUCCINYLCHOLINE CHLORIDE 100 MG/5 ML SYR IV ONE (07:24)
[2018-12-09] MEDS ORDERED: PROPOFOL 10 MG/ML 20 ML VIAL IV ONE (07:24)
[2018-12-09] MEDS ORDERED: BUPIVACAIN-EPI 0.25%-1:200,000 30 ML VIAL INTRAARTIC ONE (07:28)
[2018-12-09 08:12] VITALS: TEMP 97.4
--- NOTE | 2018-12-09 08:17 | P.OP ---
Date of Procedure: 12/09/18 Preoperative Diagnosis: Internal derangement right knee Postoperative Diagnosis: 1. Tear medial meniscus right knee 2. Grade 2/3 chondromalacia medial femoral condyle right knee 3. Grade 4 chondromalacia lateral femoral condyle right knee 4. Reactive synovitis medial, lateral and suprapatellar compartments right knee Procedure(s) Performed: 1. Arthroscopic partial medial meniscectomy right knee 2. Arthroscopic chondroplasty medial femoral condyle right knee 3. Arthroscopic chondroplasty lateral femoral condyle right knee 4. Arthroscopic microfracture lateral femoral condyle right knee 5. Arthroscopic partial synovectomy medial, lateral and suprapatellar compartments right knee Anesthesia: JENNIFERA, local Surgeon: John Hdez Estimated Blood Loss (ml): 5 Pathology: none sent Condition: stable Disposition: PACU Indications for Procedure: 63-year-old patient seen with progressive right knee pain. After treatment options were discussed, she elected to proceed with arthroscopy. Operative Findings: See description of procedure Description of Procedure: Patient was taken to the operative suite. Patient underwent a general anesthetic by the department of anesthesia. Patient was given preoperative antibiotics. The right lower extremity was placed in a well-padded arthroscopic leg ross. The right leg was prepped and draped in the normal sterile orthopedic fashion. A lateral parapatellar and suprapatellar incision was made. Trochars were inserted. Arthroscopy was initiated. Suprapatellar pouch revealed diffuse thick reactive synovitis. The patellofemoral joint appeared to articulate congruently. There was grade 1 chondromalacia changes of the patella with no osteochondral tears present. The scope was guided into the medial gutter. No loose bodies or plica were identified. The scope was then guided into the medial compartment. A medial parapatellar incision was made. Trocar inserted followed by probe. There was a radial tear anterior horn medial meniscus. There were grade 2/3 chondromalacia changes the medial femoral condyle with small osteochondral tears present. There was reactive synovitis anteriorly. I performed a partial medial meniscectomy down to stable tissue. I performed a chondroplasty of the medial femoral condyle down to stable tissue. I performed a partial synovectomy decompressing the reactive synovitis anteriorly. The residual meniscus was stable. The residual osteochondral surface was stable. There was good decompression of the synovitis. Scope and probe were then guided into the intercondylar notch. Cruciates were identified, probed and found to be stable. The scope and probe were then guided into lateral compartment. There was some mild fraying of the midbody lateral meniscus. There was a 2 cm grade 4 chondral defect lateral femoral condyle with some peripheral osteochondral tears. There was reactive synovitis anteriorly. I performed a chondroplasty of that lateral femoral condyle. I performed a partial synovectomy decompressing the reactive synovitis. I performed a microfracture to the lateral femoral condyle penetrating the bone achieving some bleeding at the microfracture site. The residual osteochondral surface was stable. There was good decompression of that reactive synovitis anteriorly. The scope was in guided back into the suprapatellar compartment. I introduced a motorized shaver into the super compartment. I performed a partial synovectomy decompressing the reactive synovitis. I took one more look on the entire knee, no residual debris. Instruments were now removed from the joint. The joint was infiltrated with .25 % Marcaine. Steri-Strips were applied to the portal sites. Sterile dressings were applied. The patient was placed into a CORBIN hose. No tourniquet was utilized. The patient was awakened, transferred to a bed and taken to recovery stable satisfactory condition.
[2018-12-09] MEDS: fentaNYL (PF) 50 MCG/ML 2 ML AMP IV PRN ×2 (08:20→08:28)
[2018-12-09 10:33] VITALS: BP 119/76; PULSE 77
== END 2018-12-09 10:30 | disposition home or self-care (01) ==
LOC: OR 06:10
PROVIDERS: ATTEND Orthopaedic Surgery
DX: S83.241A Other tear of medial meniscus, current injury, right knee, initial encounter (principal); X58.XXXA Exposure to other specified factors, initial encounter; M94.261 Chondromalacia, right knee; M65.861 Other synovitis and tenosynovitis, right lower leg; M17.11 Unilateral primary osteoarthritis, right knee; E78.5 Hyperlipidemia, unspecified; K21.9 Gastro-esophageal reflux disease without esophagitis; F39 Unspecified mood [affective] disorder; Z79.899 Other long term (current) drug therapy; Z88.5 Allergy status to narcotic agent; Z90.710 Acquired absence of both cervix and uterus; Z87.891 Personal history of nicotine dependence
CPT/HCPCS: 29881; 29879; 29876; J2250; J2405; J2001; J3010; J1885; J0330; J2704; J0690

== ENCOUNTER → 2019-05-19 | Outpatient (CLI) | payer MEDICARE, OTHER ==
--- NOTE | 2019-05-19 20:31 | CONS ---
CONSULTATION DATE OF SERVICE: 05/19/2019 This patient is a 63-year-old lady who has been evaluated in the sleep center for possible obstructive sleep apnea-hypopnea syndrome and loud snoring. HISTORY OF PRESENT ILLNESS/SLEEP-WAKE EVALUATION: Patient's usual sleep schedule is from 11 p.m. to 9:30 a.m., but usually she goes to bed at 11 p.m. but falls asleep about 1 a.m. She watches TV in the bedroom. She usually sleeps on the side position with very loud snoring and multiple awakenings from sleep, around 4 times, with dry mouth and nocturia. She also has episodes of heartburn at night. In the morning, the patient wakes up tired, falling asleep during the day. She worries about her sleep, has problems with memory, concentration, irritability, depression and anxiety. Washington Sleepiness Scale is significantly increased at 12. No history of hypnagogic hallucinations, sleep paralysis or cataplexy. PAST MEDICAL HISTORY: Past medical history is positive for: 1. Episodes of anxiety. 2. Depression. 3. Hyperlipidemia. 4. Acid reflux. PAST SURGICAL HISTORY: 1. Total left knee replacement. 2. Right knee surgery for meniscus problems. 3. Total hysterectomy. MEDICATIONS: 1. Xanax. 2. Ambien 5 mg at bedtime as necessary. 3. Lipitor. 4. Celebrex. 5. Aleve. 6. Prilosec. SOCIAL HISTORY: Positive for smoking for about 25 pack/years; quit 6 years ago. Alcohol consumption rarely. FAMILY HISTORY: Hypertension, heart problems, hyperlipidemia, stroke, arthritis, sinus problems, lung problems, sleep apnea, headaches, cancer, diabetes, ulcers, acid reflux. REVIEW OF SYSTEMS: Multiple awakenings from sleep, tiredness and sleepiness during the day, sometimes difficulty initiating sleep at night. PHYSICAL EXAMINATION: GENERAL: A pleasant lady without distress. VITAL SIGNS: BP 125/86, HR 95, RR 16, height 5 feet 6 inches, weight 180.8 pounds. Temperature 97.9. Oxygen saturation at room air 95%. HEENT: PERRLA, EOMI. Evaluation of oropharynx showed tongue protrudes midline. Practically normal position of the soft palate vertically, but horizontally very short distance between soft palate and posterior pharyngeal wall. Restriction of nasal breathing significantly on both sides. NECK: Supple. No JVD. Thyroid is not palpable. Neck measures 14-3/4 inches in circumference. LUNGS: Clear to percussion and to auscultation. Good air exchange. No wheezing or rhonchi. HEART: S1, S2 regular. No murmurs, gallops or rubs. ABDOMEN: Soft and nontender. Bowel sounds are present. No organomegaly. EXTREMITIES: No clubbing or cyanosis. TRAINING FACILITATOR: Awake, alert, and oriented X3. Cranial nerves 2 to 7 intact. There is no fasciculation or atrophy. noted. No focal deficits observed. IMPRESSION: 1. Loud snoring, multiple awakenings from sleep with nocturia, excessive daytime sleepiness, Washington Sleepiness Scale of ; obstructive sleep apnea-hypopnea syndrome. 2. Psychophysiological insomnia with difficulty initiating sleep. 3. History of anxiety. 4. History of depression. 5. Hyperlipidemia. 6. Acid reflux. 7. Status post total left knee replacement. 8. Status post right knee surgery for meniscus problems. 9. Status post total hysterectomy. PLAN: 1. Polysomnography for evaluation of patient's breathing during sleep. 2. CPAP/BiPAP titration if sleep study confirms obstructive sleep apnea-hypopnea syndrome. 3. Preferable position during sleep on the side. 4. No driving if patient feels any sleepiness. 5. I will see patient for follow up visit to explain results of testing and following plan. 6. I discussed with the patient recommendations for treatment of psychophysiological insomnia, including stimulus control, paradoxical intention, worry time, no watching clock, possibly some sleep restriction therapy after her possible obstructive sleep apnea-hypopnea syndrome is treated. Thank you very much for referring this patient for consultation. Sincerely, Nicola Morales MD, PhD, FAASM Diplomat of [employer] Residential Carpet Installer of [facility] [place] MMODL / IJN: [id number] /
== END ==
LOC: SLEEP 14:41
PROVIDERS: ATTEND Internal Medicine
DX: G47.33 Obstructive sleep apnea (adult) (pediatric) (principal); F41.8 Other specified anxiety disorders; E78.5 Hyperlipidemia, unspecified; K21.9 Gastro-esophageal reflux disease without esophagitis; Z96.652 Presence of left artificial knee joint; Z98.890 Other specified postprocedural states; Z90.710 Acquired absence of both cervix and uterus; Z87.891 Personal history of nicotine dependence; Z79.899 Other long term (current) drug therapy; Z79.1 Long term (current) use of non-steroidal anti-inflammatories (NSAID)
CPT/HCPCS: 99211

== ENCOUNTER → 2019-08-31 | Outpatient (CLI) | payer MEDICARE, OTHER ==
--- NOTE | 2019-08-31 14:41 | PN ---
PROGRESS NOTE DATE OF SERVICE: 08/31/2019 A 63-year-old lady who has been followed in the Sleep Center for treatment of obstructive sleep apnea-hypopnea syndrome. Recently, patient had a polysomnogram which showed mild obstructive sleep apnea- hypopnea syndrome but because patient presented with symptoms of significant excessive daytime sleepiness, she was started on treatment with CPAP. This is her first visit after she was treated with CPAP. She feels much better with the CPAP. No sleepiness during the day. Her quality of sleep improved. Zearing Sleepiness Scale today is 5. I checked the patient's CPAP unit, range of the pressure 5-10 cm of water. Average pressure 9.9 cm of water. The usage is 29/30 nights and /30 nights more than 4 hours with average usage 7.6 hours. Leak 10 L/minute which is acceptable. Apnea-hypopnea index 3.0, which is in normal range. MEDICATIONS: Lipitor, Celebrex, Aleve, Prilosec. Patient was able to sleep without Ambien most of the night at the present time. PHYSICAL EXAM: Patient in no distress, BP 166/70, HR 72, RR 16, temp is 98.3, oxygen saturation at room air 95%. Weight 189 pounds. GENERAL A pleasant patient without any distress. VITAL SIGNS BP@@ , HR@@ , RR@@, height @@ , weight @@ , BMI @@, temperature @@ , oxygen saturation at room air @@%. HEENT PERRLA, EOMI, evaluation of oropharynx showed tongue protrudes midline. Neck Supple, no JVD. Thyroid is not palpable. LUNGS Clear to percussion and to auscultation. Good air exchange. No wheezing or rhonchi. HEART S1, S2 regular. No murmurs, gallops, or rubs. ABDOMEN Soft and nontender. Bowel sounds are present. No organomegaly appreciated. EXTREMITIES No clubbing or cyanosis. BACKUP ADMINISTRATOR Awake, alert, and oriented X3. Cranial nerves 2 to 7 intact. There is no fasciculation or atrophy. noted. No focal deficits observed. IMPRESSION: 1. Obstructive sleep apnea-hypopnea syndrome. Patient demonstrated great compliance with treatment, benefitting from treatment. 2. History of anxiety. 3. History of depression. 4. Hyperlipidemia. 5. Acid reflux. 6. Status post total knee replacement. 7. Status post right knee surgery for meniscus problems. 8. Status post total hysterectomy. PLAN: 1. Patient will continue to use CPAP equipment every night for the whole night. 2. I will maintain prescriptions for all necessary CPAP supplies. 3. Watching weight. 4. Sleep hygiene with regular time in bed for at least 8 hours. 5. No driving if feeling sleepiness. \. 6. Followup visit in 1 year or in earlier if patient has any problems. Thank you very much for allowing me to participate in the management of your patient. Sincerely, Nicola Morales MD, PhD, FAASM Diplomat of [place] [employer] [employer] Returned Goods Inspector of [facility] [place]. MMODL / IJN: [id number] /
== END ==
LOC: SLEEP 13:09
PROVIDERS: ATTEND Internal Medicine
DX: G47.33 Obstructive sleep apnea (adult) (pediatric) (principal); E78.5 Hyperlipidemia, unspecified; K21.9 Gastro-esophageal reflux disease without esophagitis; Z96.659 Presence of unspecified artificial knee joint; Z98.890 Other specified postprocedural states; Z90.710 Acquired absence of both cervix and uterus; Z86.59 Personal history of other mental and behavioral disorders; Z99.89 Dependence on other enabling machines and devices; Z79.899 Other long term (current) drug therapy

== ENCOUNTER → 2019-10-20 | Outpatient (CLI) | payer MEDICARE, OTHER ==
--- NOTE | 2019-10-20 10:48 | CT ---
EXAMINATION TYPE: CT chest w con DATE OF EXAM: 10/20/2019 COMPARISON: 10/10/2011 HISTORY: 64 year-old female shortness of breath, Dyspnea on exertion TECHNIQUE: Contiguous axial scanning of the chest after the administration of 100 mL of Isovue 300. Coronal/sagittal reconstructions performed. CT DLP: 364.6mGycm. Automatic exposure control utilized for a dose reduction. FINDINGS: Heart normal size without pericardial effusion. Mild scattered coronary vessel calcifications are pre sent. Aorta normal caliber with atherosclerotic arch calcifications and conventional arch vessel branching anatomy. Prominent but nonenlarged 1.1 cm left axillary lymph node is unchanged from 10/10/2011. Scattered non enlarged mediastinal lymph nodes. No thoracic lymphadenopathy by CT size criteria. Scattered strandy postoperative basilar atelectasis. Stable 4 and 5 mm pulmonary nodules posterior right lower lobe, axial image 40 and 42. Mild biapical pleural-parenchymal scarring. 5 mm subpleural pulmonary nodule peripheral left lower lobe stable from 2010. No consolidation or pleural effusion. Visualized upper abdomen shows marked low attenuation of the liver. Mild degenerative disc disease mid thoracic spine. IMPRESSION: 1. Scattered 5 mm and smaller pulmonary nodules are stable back to 2010 compatible with a benign etio logy. 2. No acute pulmonary process. 3. Severe hepatic steatosis. Correlation with LFTs, lipid profile, and patient risk factors.
== END | disposition home or self-care (01) ==
LOC: CPPFTMAIN 08:20
PROVIDERS: ATTEND Internal Medicine Critical Care Medicine
DX: R06.09 Other forms of dyspnea (principal); R91.8 Other nonspecific abnormal finding of lung field
CPT/HCPCS: 94726; 94729; 94060; 82565; 84520; 71260; 36415; Q9967

== ENCOUNTER → 2020-07-05 | Outpatient (CLI) | payer MEDICARE, OTHER ==
[2020-07-05 16:31] LABS: Albumin 4.3 g/dL (3.80-4.90); Albumin/Globulin Ratio 1.87 (1.60-3.17); Anion Gap 7.1 mmol/L (4.00-12.00); BUN/Creat Ratio 27.5 Ratio (12.00-20.00); Calcium 9.1 mg/dL (8.7-10.3); Carbon Dioxide 26.9 mmol/L (21.6-31.8); Globulin 2.3 g/dL (1.6-3.3); Non-African American GFR(CKD) 76.8 (60.0-200.0); Potassium 4.2 mmol/L (3.5-5.5); Total Bilirubin 0.4 mg/dL (0.3-1.2); Total Protein 6.6 g/dL (6.2-8.2)
[2020-07-05 17:39] LABS: Hemoglobin A1C 6.2 % (4.0-6.0)
== END | disposition home or self-care (01) ==
LOC: LABWHC1 07:38
PROVIDERS: ATTEND Internal Medicine Endocrinology, Diabetes & Metabolism
DX: E04.2 Nontoxic multinodular goiter (principal); R73.09 Other abnormal glucose
CPT/HCPCS: 36415; 80053; 83036

== ENCOUNTER → 2020-11-06 | Outpatient (CLI) | payer MEDICARE, OTHER | END | disposition home or self-care (01) | LOC: LABPAT 12:14 | PROVIDERS: ATTEND Orthopaedic Surgery | DX: Z01.812 Encounter for preprocedural laboratory examination (principal) | CPT/HCPCS: 87070 ==

== ENCOUNTER 2020-11-14 06:44 | Day surgery (SDC) | payer MEDICARE, OTHER ==
[2020-11-09 11:03] VITALS: BMI 27.1
--- NOTE | 2020-11-13 15:05 | HP ---
HISTORY AND PHYSICAL DATE OF SURGERY: 11/14/2020 Hyacinth Moon is a 65-year-old patient seen with symptomatic right knee osteoarthritis. We discussed options for treatment. She elected to proceed with right total knee arthroplasty. Consent regarding the procedure was obtained. Medical clearance was provided by Dr. Womack. PAST MEDICAL HISTORY: Hypertension, hyperlipidemia. PAST SURGICAL HISTORY: section, hysterectomy, right knee arthroscopy, left total knee arthroplasty, cataract surgery. DAILY MEDICATIONS: Ambien, aspirin, Celexa, Lipitor, omeprazole, Xanax. ALLERGIES: NORCO. SOCIAL HISTORY: She denies current tobacco use. PHYSICAL EVALUATION OF THE RIGHT KNEE: Range of motion is -2 to 120. Tenderness medial joint line. Crepitus medial patellofemoral compartments on range of motion. Pain with patellofemoral compression. Ligaments stable. Hip rotation without pain. Distal neurovascular exam intact. RADIOGRAPHS: Right knee radiographs reveal severe osteoarthritic changes. IMPRESSION: 1. Right knee osteoarthritis. 2. Hyperlipidemia. 3. Gastroesophageal reflux disease. PLAN: Right total knee arthroplasty. MMODL / IJN: [id number] /
[~2020-11-14 06:44] MED LIST changes: +ACETAMINOPHEN TAB 500 MG TAB PO PRN; -LIDOCAINE 1% 20 ML VIAL (10MG/ML) FOR IV START INTRADERMA PRN; +MELOXICAM 7.5 MG TAB PO PRN; -ONDANSETRON 4 MG/2 ML VIAL IVP ONE; +TRANEXAMIC ACID 1,000 MG in SODIUM CHLORIDE 0.9% 100 ML IVPB PRN; -ceFAZolin IN SWFI 2 GM/20 ML SYRINGE IVP ONE
[2020-11-14] MEDS ORDERED: ONDANSETRON 4 MG/2 ML VIAL ONE (07:16)
[2020-11-14] MEDS ORDERED: LIDOCAINE 1% (10MG/ML) FOR IV START INTRADERMA ONE (07:32)
[2020-11-14] MEDS ORDERED: LACTATED RINGERS 1,000 ML IV ONE ×2 (07:32→09:48)
[2020-11-14] MEDS ORDERED: ONDANSETRON 4 MG/2 ML VIAL IVP ONE (07:33)
[2020-11-14] MEDS ORDERED: DEXAMETHASONE SOD PHOSPHATE 4 MG/ML 1 ML VIAL IV ONE (07:33)
[2020-11-14] MEDS ORDERED: MIDAZOLAM 2 MG/2 ML VIAL IV ONE (07:45)
[2020-11-14] MEDS ORDERED: fentaNYL (PF) 50 MCG/ML 2 ML AMP IV ONE (07:45)
[2020-11-14 07:51] LABS: Glucose,Whole Blood 125 mg/dL (75-99)
[2020-11-14] MEDS ORDERED: TRANEXAMIC ACID 1,000 MG/10 ML VIAL ONE (08:21)
[2020-11-14] MEDS ORDERED: MIDAZOLAM 2 MG/2 ML VIAL ONE (08:21)
[2020-11-14] MEDS ORDERED: SODIUM CHLORIDE 0.9% 100 ML BAG ONE (08:21)
[2020-11-14] MEDS ORDERED: PROPOFOL 10 MG/ML 20 ML VIAL IV ONE (08:21)
[2020-11-14] MEDS ORDERED: fentaNYL (PF) 50 MCG/ML 2 ML AMP ONE (08:21)
[2020-11-14] MEDS ORDERED: ceFAZolin 1,000 MG in SODIUM CHLORIDE 0.9% 1,000 ML IRRIGATION ONE ×4 (08:26)
[2020-11-14] MEDS: ROPIVACAINE 246.25 MG, EPINEPHrine 0.5 MG, KETOROLAC 30 MG, cloNIDine HCL/PF 80 MCG, WA... MISCELLANE PRN ×10 (08:59→09:36)
[2020-11-14] MEDS ORDERED: HYDROcodone/APAP 5-325MG 1 EACH TAB PO PRN (09:57)
[2020-11-14] MEDS ORDERED: HYDROmorphone 0.2 MG/1 ML SYRINGE IVP PRN (09:57)
[2020-11-14] MEDS ORDERED: NALOXONE 0.4 MG/ML 1 ML VIAL IV PRN (09:57)
[2020-11-14] MEDS ORDERED: HYDROmorphone 0.5 MG/0.5 ML SYRINGE IVP PRN ×2 (09:57)
--- NOTE | 2020-11-14 09:57 | P.OP ---
Date of Procedure: 11/14/20 Preoperative Diagnosis: Right knee osteoarthritis Postoperative Diagnosis: Right knee osteoarthritis Procedure(s) Performed: Right total knee arthroplasty Implants: 1. Depuy attune size 4 cruciate retaining cemented femur 2. Depuy attune size 4 fixed bearing cemented tibial baseplate 3. Depuy attune size 4 fixed bearing cruciate retaining 5 mm polyethylene tibial insert 4. Depuy attune 32 mm all polyethylene cemented patella Anesthesia: regional (Adductor canal catheter), local, spinal Surgeon: John Hdez Log Washer #1: Warren Mcfarlane Estimated Blood Loss (ml): 40 Pathology: other (Bone) Condition: stable Disposition: PACU Indications for Procedure: 65-year-old patient seen with symptomatic right knee osteoarthritis. After having treatment options discussed, she elected to proceed with total knee arthroplasty. Operative Findings: See description of procedure Description of Procedure: Patient was taken to the operative suite after having an adductor canal catheter placed by the department of anesthesia. Patient underwent a spinal anesthetic by the department of anesthesia. Patient was given preoperative IV intake antibiotics and TXA. A well-padded tourniquet was placed about the right lower extremity. The lower extremity was then prepped and draped in the normal sterile orthopedic fashion. The extremity was elevated, a tourniquet was in sufflated to 300. A standard anterior incision was made sharply through skin. Dissection was taken down through the subcutaneous soft tissues down to the extensor mechanism. A medial arthrotomy was performed, patella was everted and knee was flexed. There was advanced osteoarthritis noted. I introduced my distal intramedullary femoral drill. I then introduced the distal femoral cutting jig. Devin RENDON secured the cutting jig with 2 pins. I held retractors in position while Devin RENDON performed the distal femoral resection through the guide area we now removed her distal femoral cutting guide. We now placed our 4-in-1 femoral cutting block and positioned and it was secured with 2 pins by Devin RENDON while I held the block in position. The distal femoral finishing was now completed. A proximal tibial cutting guide was positioned. I held the guide in the appropriate position with both hands well Devin RENDON inserted stabilizing pins into the guide. Proximal tibial cut was made. We now placed a trial femoral component into position, along with an appropriate size tibial tray and insert. We now took the knee through range of motion and had full extension good flexion and good overall soft tissue balance noted. The patella was everted and stabilized with 2 towel clips held by Devin RENDON while I performed a flush with patellar quad tendon utilizing a fresh sawblade. We templated the patella, appropriate drill holes were made. An appropriate trial patella was positioned, knee was taken through full range of motion with the patella tracking very nicely. The trial patella was removed. Drill holes were made through the femoral component. All trial components were removed after marking off the appropriate rotation of the tibia. Retractors were now positioned along the proximal tibia. An appropriate keel punch was made with the appropriate size tibial guide by myself on Devin RENDON assisted by holding retractors. At this point appropriate size implants were chosen and opened. The joint was irrigated copiously with pulse lavage mechanical irrigation. The posterior capsule was infiltrated with local analgesic. The wound was irrigated with pulse lavage mechanical irrigation. We mixed antibiotic methylmethacrylate. We placed the knee into flexion. We placed multiple retractors assisted by Devin RENDON to expose the proximal tibia. Once the methyl methacrylate was ready, the tibial component was cemented into place removing any excess methylmethacrylate form by both myself and Devin RENDON. The femoral component was cemented into place removing the removing any excess methylmethacrylate performed by both myself and Devin RENDON. We then inserted the appropriate size polyethylene tibial insert. We made sure that it was locked into position. We took the knee into full extension, and then back in a flexion making sure we had removed any excess methylmethacrylate. The patellar component was then cemented down and secured with clamp. Excess methylmethacrylate removed. We kept the knee in full extension, patellar clamp in position until methylmethacrylate had hardened. Once it had hardened the patellar clamp was removed. The knee was taken through full range of motion. The patella tracked nicely. There was good soft tissue balancing. The tourniquet was now released. Additional hemostasis was achieved via electrocautery. A second gram of TXA was given. The wound again was irrigated with pulse lavage mechanical irrigation. The superficial soft tissues were infiltrated local analgesic. The extensor mechanism was repaired with Vicryl. We checked the repair with range of motion and it was stable. The subcutaneous soft tissues were repaired with Vicryl in layers. The skin was approximated with pernio/Dermabond. Sterile dressings were applied followed by loose web roll and Orlin bandage. The patient was transferred to a bed, and taken to recovery in stable and satisfactory condition. Devin RENDON assisted with this complex procedure.
[2020-11-14 10:30] LABS: Glucose,Whole Blood 166 mg/dL (75-99)
[2020-11-14] MEDS ORDERED: ROPIVACAINE 0.2%-NS ON-Q PUMP 1,090 MG, EMPTY PAIN BALL 1 EACH MISCELLANE PRN (10:36)
--- NOTE | 2020-11-14 10:39 | XR ---
EXAMINATION TYPE: XR knee limited RT DATE OF EXAM: 11/14/2020 CLINICAL HISTORY: Right knee pain and arthritis status post total knee replacement. TECHNIQUE: Portable AP and crosstable lateral views of the right knee are obtained immediately posto peratively. COMPARISON: Right knee x-ray June 19, 2020 FINDINGS: Metallic hardware from total right knee arthroplasty is seen and appears satisfactory in a lignment and position. There is evidence of recent surgery with diffuse subcutaneous gas, soft tissu e swelling, and overlying vertical skin maureen noted. IMPRESSION: METALLIC HARDWARE FROM TOTAL RIGHT KNEE ARTHROPLASTY IS SATISFACTORY IN ALIGNMENT.
[2020-11-14] MEDS: LACTATED RINGERS 1,000 ML IV SCH ×3 (12:10→23:05)
--- NOTE | 2020-11-14 12:18 | P.ANPRN ---
Procedure Note - Anesthesia - Nerve Block Performed Right Adductor Canal Infusion Time Out Performed: Yes (745) Date of Procedure: 11/14/20 Procedure Start Time: 07:46 Procedure Stop Time: 07:53 Location of Patient: PreOp Indication: Acute Post-Operative Pain, Requested by Surgeon Specifically requested for management of pain by DrIsmael: John Hdez Sedation Type: Sedate with meaningful contact maintained Preparation: Sterile Prep Position: Supine Catheter Depth at Skin (cm): 8 Catheter: Indwelling Needle Types: Pajunk Needle Gauge: 21 Ultrasound used to visualize needle placement: Yes Ultrasound used to observe medication spread: Yes Injectate: 0.5% Ropivacaine (see comment for volume) (20cc) Blood Aspirated: No Pain Paresthesia on Injection Noted: No Resistance on Injection: Normal Image Stored and Saved: Yes Events: Uneventful and Well Tolerated
[2020-11-14] MEDS: INSULIN ASPART (NovoLOG) 100 UNIT/ML VIAL SQ SCH ×3 (13:01→22:21)
[2020-11-14 16:55] LABS: Glucose,Whole Blood 172 mg/dL (75-99)
[2020-11-14] MEDS ORDERED: ALPRAZolam 0.5 MG TAB PO PRN (17:25)
[2020-11-14] MEDS: HYDROcodone/APAP 5-325MG 1 EACH TAB PO PRN ×2 (18:09→23:09)
[2020-11-14 20:59] LABS: Glucose,Whole Blood 151 mg/dL (75-99)
[2020-11-14] MEDS ORDERED: ATORVASTATIN 20 MG TAB PO SCH (21:00)
[2020-11-14] MEDS ORDERED: SENNOSIDES-DOCUSATE SODIUM 1 EACH TAB PO SCH (21:00)
[2020-11-14] MEDS: ENOXAPARIN 30 MG/0.3 ML SYRINGE SQ SCH (22:20)
[2020-11-15 06:40] LABS: Glucose,Whole Blood 115 mg/dL (75-99)
[2020-11-15 07:08] LABS: Basophils % (A) 0 %; Eosinophils % (A) 0 %; HCT 33.6 % (34.0-46.0); HGB 11.4 gm/dL (11.4-16.0); Lymphocytes # (A) 2.2 k/uL (1.0-4.8); Lymphocytes % (A) 22 %; MCH 33.2 pg (25.0-35.0); MCHC 34.1 g/dL (31.0-37.0); MCV 97.3 fL (80.0-100.0); Mean Platelet Volume 7.7; Monocytes # (A) 0.4 k/uL (0-1.0); Monocytes % (A) 4 %; Neutrophils # (A) 7.3 k/uL (1.3-7.7); Neutrophils % (A) 73 %; Platelet Count 216 k/uL (150-450); RBC 3.45 m/uL (3.80-5.40); RDW 12.2 % (11.5-15.5); WBC 10.1 k/uL (3.8-10.6)
[2020-11-15] MEDS: INSULIN ASPART (NovoLOG) 100 UNIT/ML VIAL SQ SCH ×2 (07:21→11:56)
[2020-11-15 07:26] VITALS: BP 109/61; PULSE 59; RESP 18; TEMP 98.3
--- NOTE | 2020-11-15 08:20 | P.DS ---
Providers Date of admission: 11/15/2020 Attending physician: John Hdez Consults: 11/14/20 09:57 Consult Physician Routine Consulting Provider: Jose Womack Reason/Comments: Medical management Do you want consulting provider notified?: Yes Primary care physician: Jose Womack Hospital Course: Date of admission: 11/14/2020 Date of discharge: [] Admission diagnosis: Status post right total knee arthroplasty Discharge diagnosis: Same Attending physician: Dr. Hdez Surgical procedures: Right total knee arthroplasty Brief history: Patient is a 65-year-old female with a history of progressive primary right knee osteoarthritis. At this point patient has failed conservative treatment measures and has opted to proceed with a elective right total knee arthroplasty. Hospital course: Details of patient's surgery can be found in operative report. Patient tolerated the procedure well and was subsequently transported to orthopedic floor. Patient's orthopeidc and medical care was provided daily. Patient had daily laboratory tests performed for evaluation of overall blood counts. Patient had daily physical therapy to include strengthening range of motion as well as education with walker ambulation. Patient was treated with Lovenox for their postoperative DVT prophylaxis during their inpatient stay. Patient was noted to have a relatively uneventful postoperative course. Patient reported satisfactory pain control with oral pain medications by postoperative day 0. Patient showed satisfactory progress with physical therapy. Patient moved steadily through the program and had no difficulty meeting the goals by postoperative day []. Given patient's otherwise satisfactory course and having met physical therapy goals, plan is to discharge patient [home] on postoperative day []. Discharge condition/disposition: Patient will be discharged [home] in stable condition. Discharge medications: Instructions are given on resumption of patient's normal daily medications per primary care recommendation, in addition patient will be prescribed []. Discharge instructions: 1. Wound care and infection precautions, [keep incision dry and covered while showering], no lotions, creams, moisturizers. No soaking, tubs, pools, hottubs. Do not scrub over the incision. 2. Weight-bear [as tolerated] with walker / cane until follow-up. 3. Ice and elevate when necessary. Do not exceed 20 minutes per hour with ice pack. 4. Utilize compression sleeve until seen at first follow up appointment. 5. Visiting nursing care. 6. Home physical therapy [including home CPM]. 7. Pain meds and anticoagulants per prescription. 8. Pain medication has potential to cause constipation. Increase oral fluid and fiber intake. Contact primary care provider if you have not had a bowel movement within 48 hours after discharge 9. No anti-inflammatory medication until discussed at first post operative visit, this including Motrin, Aleve, Mobic, Diclofenac. 10. Follow up in office at 2 weeks postop with Devin Mcfarlane PA-C 11. Follow up with your primary care doctor 7-10 days after discharge. 12. Contact [facility] with any questions, . Procedures: Right total knee arthroplasty Patient Condition at Discharge: Good Plan - Discharge Summary Discharge Rx Participant: Yes New Discharge Prescriptions: No Action Omeprazole [PriLOSEC] 20 mg PO QAM Atorvastatin Calcium [Lipitor] 20 mg PO HS ALPRAZolam [Xanax] 0.5 mg PO TID PRN PRN Reason: Anxiety Citalopram Hydrobromide [CeleXA] 40 mg PO DAILY metFORMIN HCL [Glucophage] 500 mg PO AC-SUPPER Ascorbic Acid [Vitamin C] 500 mg PO DAILY Ibuprofen 400 mg PO DIRECTED PRN PRN Reason: Pain Zinc 50 mg PO DAILY Discharge Medication List Omeprazole [PriLOSEC] 20 mg PO QAM 10/21/16 [History] ALPRAZolam [Xanax] 0.5 mg PO TID PRN 08/19/17 [History] Atorvastatin Calcium [Lipitor] 20 mg PO HS 08/19/17 [History] Citalopram Hydrobromide [CeleXA] 40 mg PO DAILY 12/07/18 [History] Ascorbic Acid [Vitamin C] 500 mg PO DAILY 11/09/20 [History] Ibuprofen 400 mg PO DIRECTED PRN 11/09/20 [History] Zinc 50 mg PO DAILY 11/09/20 [History] metFORMIN HCL [Glucophage] 500 mg PO AC-SUPPER 11/09/20 [History] Follow up Appointment(s)/Referral(s): Warren Mcfarlane PAC [PHYSICIAN TWISTHAND] - 2 Weeks Activity/Diet/Wound Care/Special Instructions: Orthopedic Discharge Instructions: 1. Wound care and infection precautions, keep incision dry and covered while showering, no lotions, creams, moisturizers. No soaking, pools, hot tubs. Do not scrub over incision. 2. Weight-bear as tolerated with walker / cane until follow-up. 3. Ice and elevate when necessary. Do not exceed 20 minutes per hour with ice pack. 4. Utilize compression sleeve until seen at first follow up appointment. 5. Pain meds and anticoagulants per prescription. 6. Pain medication has potential to cause constipation. Increase oral fluid and fiber intake. Contact primary care provider if you have not had a bowel movement within 48 hours after discharge. 7. No anti-inflammatory medication until discussed at first post operative visit, this including Motrin, Aleve, Mobic, Diclofenac. 8. Follow up in office at 2 weeks postop with Devin Mcafrlane PA-C 9. Follow up with your primary care doctor 7-10 days after discharge. 10. Contact [facility] with any questions, . Discharge Disposition: HOME WITH HOME HEALTH SERVICES
--- NOTE | 2020-11-15 08:35 | P.PN ---
Progress Note - Text Progress Note Date: 11/15/20 (103) Anesthesiology Postop day 1 status post total knee arthroplasty with adductor canal catheter. Patient doing well. VAS 5 out of 10. Gross strength intact in lower extremity. Afebrile. Denies alterations in sensorium. Catheter site intact. Heart regular rate Lungs nonlabored Abdomen nondistended Assessment: Postop day 1 status post total knee arthroplasty with adductor canal catheter Plan: All questions answered. Maintain catheter 2 more days with patient removal at home. Instructions were given at discharge.
[2020-11-15] MEDS ORDERED: PANTOPRAZOLE 40 MG TABLET PO SCH (09:00)
[2020-11-15] MEDS ORDERED: ASCORBIC ACID 500 MG TAB PO SCH (09:00)
[2020-11-15] MEDS ORDERED: CITALOPRAM HYDROBROMIDE 20 MG TAB PO SCH (09:00)
[2020-11-15] MEDS ORDERED: ZINC SULFATE 220 MG CAP PO SCH (09:00)
[2020-11-15] MEDS: ENOXAPARIN 30 MG/0.3 ML SYRINGE SQ SCH (09:22)
--- NOTE | 2020-11-15 10:51 | P.PN ---
Subjective Progress Note Date: 11/15/20 Principal diagnosis: Status post right total knee arthroplasty Patient evaluated bedside today, she is resting in hospital bed. She has had some increasing pain in the back of the knee. She's ambulated well with therapy, she did do the stairs. She currently has no headaches, lightheadedness, chest pain, shortness of breath, nausea, vomiting. Objective - Vital Signs Vital signs: Vital Signs Temp 98.3 F 11/15/20 07:25 Pulse 59 L 11/15/20 07:25 Resp 18 11/15/20 07:25 BP 109/61 11/15/20 07:25 Pulse Ox 95 11/15/20 07:25 Intake & Output 11/14/20 11/15/20 11/15/20 18:59 06:59 18:59 Intake Total 4575 Output Total 40 Balance 4535 Weight 76.9 kg Intake: IV 4575 Lactated Ringers 1,000 ml 1500 @ 100 mls/hr IV .Q10H YESSICA Rx#:[id number] ceFAZolin 2 gm In Sodium 100 Chloride 0.9% 50 ml @ 100 mls/hr IVPB Q8H YESSICA Rx#: [id number] Output: Estimated Blood Loss 40 Other: Voiding Method Toilet # Voids 1 - Exam Right lower extremity: Incision is clean, dry, and intact. The maureen are in good condition. There is minimal soft tissue swelling and ecchymosis surrounding the medial and lateral aspects of the incision. Calf is soft, no tenderness with palpation. Plantar flexion, dorsiflexion, EHL, FHL are intact. Sensory exam to light touch throughout the extremity is intact, dorsal pedis pulses 2+. - Labs CBC & Chem 7: 11/15/20 06:15 Labs: Abnormal Lab Results - Last 24 Hours (Table) 11/14/20 11/14/20 11/15/20 Range/Units 16:53 20:57 06:15 RBC 3.45 L (3.80-5.40) m/uL Hct 33.6 L (34.0-46.0) % POC Glucose (mg/dL) 172 H 151 H (75-99) mg/dL 11/15/20 Range/Units 06:37 RBC (3.80-5.40) m/uL Hct (34.0-46.0) % POC Glucose (mg/dL) 115 H (75-99) mg/dL Assessment and Plan Assessment: Status post right total knee arthroplasty Plan: Pain control, plan for discharge home on [place] 7.5 mg/325 mg DVT prophylaxis, aspirin 81 mg twice a day for 30 days Wound care instructions were discussed Home health care after discharge Medical recommendations Plan for discharge home today Time with Patient: Less than 30
[2020-11-15 11:40] LABS: Glucose,Whole Blood 124 mg/dL (75-99)
[2020-11-15] MEDS ORDERED: metFORMIN 500 MG TAB PO SCH (17:30)
--- NOTE | 2020-11-15 17:46 | P.CONS ---
History of Present Illness - Reason for Consult Consult date: 11/15/20 Medical management to diabetes mellitus, gastroesophageal reflux disease, a Requesting physician: John Hdez - Chief Complaint Right knee osteoarthritis, Status post right total knee arthroplasty - History of Present Illness This is a 65-year-old female with past medical history of osteoarthritis, cancer, diabetes place, gastroesophageal reflux disease, hyperlipidemia, sleep apnea, uses CPAP, diverticulosis, anxiety, depression, former smoker presented for elective right total knee arthroplasty secondary to right knee osteoarthritis, failed conservative treatment. Tolerated procedure well. Pain pump present, reports pain controlled. Good diet intake with no nausea vomiting or diarrhea.Blood sugars controlled. Reports initially had a spinal headache which has resolved. Ambulating, tolerating exertion well. Denies lightheadedness, dizziness or focal deficits. Denies chest pain, palpitations or shortness of breath. Vital signs stable, maintaining O2 sats in the 90s on room air. Review of Systems Constitutional: Denied any fatigue denied any fever. Cardio vascular: denied any chest pain, palpitations Gastrointestinal denied any nausea vomiting Pulmonary: Denied any shortness of breath cough Neurologic denied any new focal deficits ROS Statement: Those systems with pertinent positive or pertinent negative responses have been documented in the HPI. ROS Other: All systems not noted in ROS Statement are negative. Past Medical History Past Medical History: Cancer, Diabetes Mellitus, GERD/Reflux, Hyperlipidemia, Osteoarthritis (OA), Sleep Apnea/CPAP/BIPAP Additional Past Medical History / Comment(s): DIVERTICULITIS, FREQUENT DIARRHEA, USES C-PAP MACHINE, SKIN CANCER History of Any Multi-Drug Resistant Organisms: None Reported Past Surgical History: Bladder Surgery, Hysterectomy, Joint Replacement, Orthopedic Surgery, Tonsillectomy, Tubal Ligation Additional Past Surgical History / Comment(s): 10/27/16 total L knee arthroplasty, 02/15/16 LEFT KNEE ARTHROSCOPY. , RIGHT KNEE ARTHROSCOPY, Laparoscopy, D&C, BLADDER SUSPENSION Past Anesthesia/Blood Transfusion Reactions: No Reported Reaction Additional Past Anesthesia/Blood Transfusion Reaction / Comm: . Past Psychological History: Anxiety, Depression Smoking Status: Former smoker Past Alcohol Use History: Rare Additional Past Alcohol Use History / Comment(s): STARTED SMOKING AGE 23 (1977) QUIT 2012, SMOKED 1PPD Past Drug Use History: None Reported - Past Family History Father Family Medical History: Cancer, CVA/TIA, Deep Vein Thrombosis (DVT) Additional Family Medical History / Comment(s): Lung Cancer Sister(s) Family Medical History: Cancer, Deep Vein Thrombosis (DVT), Musculoskeletal Disorder, Pulmonary Embolus Additional Family Medical History / Comment(s): Colon Cancer. Maternal Grandmother-Throat cancer Medications and Allergies Home Medications Medication Instructions Recorded Confirmed Type Omeprazole [PriLOSEC] 20 mg PO QAM 10/21/16 11/14/20 History ALPRAZolam [Xanax] 0.5 mg PO TID PRN 08/19/17 11/14/20 History Atorvastatin Calcium [Lipitor] 20 mg PO HS 08/19/17 11/14/20 History Citalopram Hydrobromide [CeleXA] 40 mg PO DAILY 12/07/18 11/14/20 History Ascorbic Acid [Vitamin C] 500 mg PO DAILY 11/09/20 11/14/20 History Ibuprofen 400 mg PO DIRECTED PRN 11/09/20 11/14/20 History Zinc 50 mg PO DAILY 11/09/20 11/14/20 History metFORMIN HCL [Glucophage] 500 mg PO AC-SUPPER 11/09/20 11/14/20 History Aspirin [Adult Low Dose Aspirin EC] 81 mg PO BID #60 tablet.dr 11/15/20 Rx Docusate [Colace] 100 mg PO DAILY #30 capsule 11/15/20 Rx HYDROcodone/APAP 7.5-325MG [[place] 1 - 2 each PO Q6HR PRN #42 tab 11/15/20 Rx 7.5] Allergies Allergy/AdvReac Type Severity Reaction Status Date / Time venom-honey bee Allergy Dyspnea/Itching, Verified 11/14/20 07:06 [bee venom (honey bee)] Swelling adhesive tape AdvReac Unknown blisters Verified 11/14/20 07:06 Physical Exam Vitals: Vital Signs Temp Pulse Resp BP Pulse Ox 11/15/20 07:25 98.3 F 59 L 18 109/61 95 11/15/20 00:32 97.8 F 53 L 15 129/73 94 L 11/14/20 19:41 98.0 F 75 15 125/71 94 L 11/14/20 19:13 53 L 16 11/14/20 15:03 97.6 F 80 18 104/62 95 11/14/20 12:38 98.0 F 73 18 130/68 97 11/14/20 12:06 72 16 107/44 93 L 11/14/20 11:40 73 16 106/42 95 11/14/20 11:25 73 16 111/49 95 11/14/20 11:10 69 16 115/50 95 11/14/20 10:55 74 16 100/53 95 11/14/20 10:40 74 16 116/47 95 11/14/20 10:25 77 16 110/47 93 L 11/14/20 10:08 79 16 121/49 94 L Intake and Output 11/14/20 11/15/20 11/15/20 22:59 06:59 14:59 Intake Total 850 Balance 850 Intake: IV 850 Lactated Ringers 1,000 ml 800 @ 100 mls/hr IV .Q10H YESSICA Rx#:[id number] ceFAZolin 2 gm In Sodium 50 Chloride 0.9% 50 ml @ 100 mls/hr IVPB Q8H YESSICA Rx#: [id number] Other: Voiding Method Toilet # Voids 1 1 PHYSICAL EXAM: VITAL SIGNS: As above GENERAL: Sitting up in bed, no acute distress HEENT: Conjunctivae normal. eyes normal. Oral mucosa moist NECK: No JVD. No thyroid enlargement. No LNs CARDIOVASCULAR: S1, S2 regular. No murmur RESPIRATION: Breath sounds diminished in the bases. No rhonchi or crackles. No bronchial breathing. ABDOMEN: Soft, nontender . No guarding. no masses palpable. No ascites, No hepatosplenomegaly.Bowel sounds heard. LEGS: Right knee dressings clean dry and intact with minimal edema, no calf tenderness, positive DP Pulse PSYCHIATRY: Alert and oriented X3, mood and affect normal. NERVOUS SYSTEM: Cranial N 2-12 grossly normal. Moves all 4 limbs. No focal deficits. Strength and sensation grossly intact.. Skin: Warm and dry no rash Results CBC & Chem 7: 11/15/20 06:15 Labs: Abnormal Lab Results - Last 24 Hours (Table) 11/14/20 11/14/20 11/14/20 Range/Units 10:29 16:53 20:57 RBC (3.80-5.40) m/uL Hct (34.0-46.0) % POC Glucose (mg/dL) 166 H 172 H 151 H (75-99) mg/dL 11/15/20 11/15/20 Range/Units 06:15 06:37 RBC 3.45 L (3.80-5.40) m/uL Hct 33.6 L (34.0-46.0) % POC Glucose (mg/dL) 115 H (75-99) mg/dL Assessment and Plan Assessment: Right knee osteoarthritis, failed conservative treatment, status post right total knee arthroplasty Diabetes mellitus Gastroesophageal reflux disease Hyperlipidemia Sleep apnea, uses CPAP Diverticulosis Cancer, type currently unknown Former nicotine dependence Anxiety depression Plan: Continue on current medication regime ,monitoring and symptomatic treatment. Home meds have been reviewed and resumed accordingly.. Aggressive pulmonary toileting with incentive spirometer reinforced. PT/stairs pending. Pain management as per primary. Discharge planning in progress as per orthopedic surgery for today. Follow-up with PCP, Dr. Womack in [address] Hdez for the consult. The impression and plan of care has been dictated as directed. : I performed a history and examination of this patient, discussed the same with the dictator. I agree with the dictator's note ,documented as a scribe. Any additional findings or plans will be noted.
== END 2020-11-15 12:18 | disposition home health service (06) ==
LOC: OR 06:44 → 4SSUR 10:02 → OR 11-15 12:18
PROVIDERS: ATTEND Orthopaedic Surgery
DX: M17.11 Unilateral primary osteoarthritis, right knee (principal); I10 Essential (primary) hypertension; E11.9 Type 2 diabetes mellitus without complications; K21.9 Gastro-esophageal reflux disease without esophagitis; E78.5 Hyperlipidemia, unspecified; G47.33 Obstructive sleep apnea (adult) (pediatric); K57.90 Diverticulosis of intestine, part unspecified, without perforation or abscess without bleeding; F41.9 Anxiety disorder, unspecified; F32.9 Major depressive disorder, single episode, unspecified; Z96.652 Presence of left artificial knee joint; Z87.891 Personal history of nicotine dependence; Z90.710 Acquired absence of both cervix and uterus; Z98.51 Tubal ligation status; Z98.890 Other specified postprocedural states; Z85.828 Personal history of other malignant neoplasm of skin; Z99.89 Dependence on other enabling machines and devices; Z82.49 Family history of ischemic heart disease and other diseases of the circulatory system; Z80.1 Family history of malignant neoplasm of trachea, bronchus and lung; Z80.0 Family history of malignant neoplasm of digestive organs; Z91.030 Bee allergy status; Z80.8 Family history of malignant neoplasm of other organs or systems; Z91.048 Other nonmedicinal substance allergy status; Z98.49 Cataract extraction status, unspecified eye; Z98.891 History of uterine scar from previous surgery
CPT/HCPCS: 97110; 97161; 64448; 76942; 85025; 85730; 88300; 73560; 27447; C1776; C1713; J2250; J0171; J1100; J0690 ×2; J2405; J3010; J1885; J1650 ×2; J2795; J2704; J0735; J1170

== ENCOUNTER → 2021-05-20 | Outpatient (CLI) | payer MEDICARE, OTHER ==
[2021-05-20 12:38] LABS: African American GFR (CKD) 103.9 (60.0-200.0); Albumin 4.4 g/dL (3.80-4.90); Albumin/Globulin Ratio 1.83 (1.60-3.17); Anion Gap 8.4 mmol/L (4.00-12.00); BUN/Creat Ratio 22.86 Ratio (12.00-20.00); Calcium 9.4 mg/dL (8.7-10.3); Carbon Dioxide 29.6 mmol/L (21.6-31.8); Chol/HDL Ratio 4.06; Globulin 2.4 g/dL (1.6-3.3); Non-African American GFR(CKD) 89.7 (60.0-200.0); Potassium 4.1 mmol/L (3.5-5.5); Total Bilirubin 0.4 mg/dL (0.2-1.2); Total Protein 6.8 g/dL (6.2-8.2)
[2021-05-20 13:21] LABS: Urine Creatinine 91.6 mg/dL
[2021-05-20 17:16] LABS: Hemoglobin A1C 5.1 % (4.0-6.0)
== END | disposition home or self-care (01) ==
LOC: LABWHC1 08:23
PROVIDERS: ATTEND Internal Medicine Endocrinology, Diabetes & Metabolism
DX: E11.9 Type 2 diabetes mellitus without complications (principal)
CPT/HCPCS: 36415; 80053; 80061; 82043; 82570; 83036; 84443

== ENCOUNTER → 2021-06-04 | Outpatient (CLI) | payer MEDICARE, OTHER | END | disposition home or self-care (01) | LOC: RADCTMAIN 17:59 | PROVIDERS: ATTEND Internal Medicine Endocrinology, Diabetes & Metabolism | DX: Z53.9 Procedure and treatment not carried out, unspecified reason (principal) ==

== ENCOUNTER → 2021-06-11 | Outpatient (CLI) | payer MEDICARE, OTHER ==
[2021-06-11 07:04] LABS: African American GFR (CKD) >90 (>60 ml/min/1.73 sqM); Blood Urea Nitrogen 14 mg/dL (7-17); Non-African American GFR(CKD) >90 (>60 ml/min/1.73 sqM)
--- NOTE | 2021-06-11 08:21 | CT ---
EXAMINATION TYPE: CT soft tissue neck wo/w con DATE OF EXAM: 06/11/2021 7:40 AM COMPARISON: None HISTORY: swollen lymph nodes, R22.[address] DLP: 706.5 mGycm Automated exposure control for dose reduction was used. CONTRAST: CT scan of the neck is performed following without and with IV Contrast, patient injected with 100 mL of Isovue 300. Axial images are obtained, coronal and sagittal reformatted images are reviewed. FINDINGS: Thyroid gland mildly heterogeneous in density. Airway: No gross abnormality seen. Parotid/submandibular glands: No gross abnormality seen. Carotid/Vascular Structures: Mild atheromatous changes present at the carotid bifurcations, 3 super a ortic branch vessels are present Osseous Structures: Skull base and cervical spine are unremarkable. Other: Scattered benign-appearing lymph nodes are present along the cervical chains. IMPRESSION: Benign-appearing lymph nodes are present within the neck. No enlarged node evident.
== END | disposition home or self-care (01) ==
LOC: RADCTMAIN 06:25
PROVIDERS: ATTEND Internal Medicine Endocrinology, Diabetes & Metabolism
DX: R22.1 Localized swelling, mass and lump, neck (principal)
CPT/HCPCS: 82565; 84520; 70492; 36415; Q9967

== ENCOUNTER → 2022-08-15 | Outpatient (CLI) | payer MEDICARE | END | disposition home or self-care (01) | LOC: LABPAT 12:51 | PROVIDERS: ATTEND Orthopaedic Surgery | DX: Z01.812 Encounter for preprocedural laboratory examination (principal); Z22.322 Carrier or suspected carrier of Methicillin resistant Staphylococcus aureus; M16.11 Unilateral primary osteoarthritis, right hip | CPT/HCPCS: 87070 ==

== ENCOUNTER → 2022-09-01 | Day surgery (SDC) | payer MEDICARE ==
[2022-08-21 09:49] VITALS: BMI 27.4
[~2022-09-01] MED LIST changes: +DEXAMETHASONE SOD PHOSPHATE 4 MG/ML 1 ML VIAL IVP ONE; +DEXAMETHASONE SOD PHOSPHATE 4 MG/ML 1 ML VIAL ONE; +HYDROcodone/APAP 5-325MG 1 EACH TAB PO PRN; +HYDROcodone/APAP 7.5-325MG 1 EACH TAB PO PRN; +HYDROmorphone 0.5 MG/0.5 ML SYRINGE IVP ONE; +HYDROmorphone 0.5 MG/0.5 ML SYRINGE IVP PRN; +LACTATED RINGERS 1,000 ML IV ONE; +LACTATED RINGERS 1,000 ML IV SCH; +LIDOCAINE 1% (10MG/ML) FOR IV START INTRADERMA PRN; +LIDOCAINE 2% INJ 20 MG/ML (2 ML VIAL) ONE; +MIDAZOLAM 2 MG/2 ML VIAL IVP ONE; +NALOXONE 0.4 MG/ML 1 ML VIAL IV PRN; +ONDANSETRON 4 MG/2 ML VIAL IVP ONE; +ONDANSETRON 4 MG/2 ML VIAL IVP PRN; +PROPOFOL 10 MG/ML 20 ML VIAL IV ONE; +ROPIVACAINE 5 MG/ML 30 ML VIAL ONE; +SUCCINYLCHOLINE CHLORIDE 200 MG/10 ML VIAL IV ONE; -TRANEXAMIC ACID 1,000 MG in SODIUM CHLORIDE 0.9% 100 ML IVPB PRN; +TRANEXAMIC ACID IN NACL,ISO-OS 1,000 MG in SALINE 1 100ML.BAG IVPB PRN; +TRANEXAMIC ACID IN NACL,ISO-OS 1,000 MG/100 ML BAG ONE; +ceFAZolin 1,000 MG in SODIUM CHLORIDE 0.9% 1,000 ML IRRIGATION ONE; +ePHEDrine 50 MG/ML 1 ML VIAL ONE; +fentaNYL (PF) 50 MCG/ML 2 ML AMP ONE
--- NOTE | 2022-09-01 06:18 | HP ---
HISTORY AND PHYSICAL DATE OF SURGERY: 09/01/2022. HISTORY OF PRESENT ILLNESS: Hycainth Moon is a 66-year-old patient, seen with symptomatic right hip osteoarthritis. We discussed options for treatment. She elected to proceed with right total hip arthroplasty. Consent was obtained. Medical clearance provided. PAST MEDICAL HISTORY: Hyperlipidemia, gastroesophageal reflux disease. PAST SURGICAL HISTORY: Hysterectomy, bladder suspension surgery, right knee arthroscopy, left total knee arthroplasty, cataract surgery. DAILY MEDICATIONS: 1. Ambien. 2. Celexa. 3. Lipitor. 4. Omeprazole. 5. Xanax. ALLERGIES: None reported. SOCIAL HISTORY: She denies tobacco use. PHYSICAL EVALUATION OF THE RIGHT HIP: She has diffuse tenderness, very limited range of motion with severe pain. Positive hip impingement sign. Straight-leg raise negative. Distal neurovascular exam intact. RADIOGRAPHS: Radiographs of the right hip reveal severe osteoarthritic changes. IMPRESSION: 1. Right hip osteoarthritis. 2. Hypertension. 3. Gastroesophageal reflux disease. PLAN: Direct anterior right total hip arthroplasty. MMODL / IJN: [id number] /
[2022-09-01 11:43] LABS: Glucose,Whole Blood 118 mg/dL (70-110)
[2022-09-01 12:00] VITALS: TEMP 97.2
--- NOTE | 2022-09-01 14:12 | P.OP ---
Date of Procedure: 09/01/22 Preoperative Diagnosis: Right hip osteoarthritis Postoperative Diagnosis: Right hip osteoarthritis Procedure(s) Performed: Direct anterior right total hip arthroplasty Implants: 1. Depuy Corail size 10 standard collar press-fit femoral stem 2. Depuy pinnacle 52 mm press-fit acetabular shell 3. Depuy pinnacle neutral polyethylene acetabular liner 36 mm ID 52 mm OD 4. Biolox delta ceramic femoral head +1.5 36 mm Anesthesia: GETA, regional (erector spinae block) Surgeon: John Hdez Mailroom Manager #1: Warren Mcfarlane Estimated Blood Loss (ml): 120 Pathology: other (Femoral head) Condition: stable Disposition: PACU Indications for Procedure: 66-year-old patient seen with symptomatic right hip osteoarthritis. After treatment options were discussed with her, she elected to proceed with direct anterior right total hip arthroplasty. Operative Findings: See description of procedure Description of Procedure: The patient was taken to the operative suite after having an erector spinea block performed by the department of anesthesia for postoperative pain management. Patient underwent a general anesthetic by the department of anesthesia. Patient was then transferred to the [place] table. Patient was given preoperative IV antibiotics and TXA. Both lower extremities were placed in standard leg spars. The hip was then prepped and draped in the normal sterile orthopedic fashion. A standard anterior incision was made beginning 3 cm lateral and 1 cm distal to the ASIS extending 10 cm. Dissection was then carried down through the subcutaneous soft tissues down to the fascia overlying the tensor fascia kenyon. An incision was now made through the fascia. Careful dissection was taken down exposing the tensor fascia kenyon muscle. A Cobra retractor was now placed along the medial femoral neck and a second one along the lateral femoral neck. The venous circumflex vessels were now identified, cauterized and clipped. We identified the anterior hip capsule. An incision was made through the hip capsule along the lateral border. I performed a partial anterior capsulectomy. Retractors were now placed around the femoral neck itself. A femoral neck cut was now made with a sagittal saw. It was completed with an osteotome at the lateral neck area. The femoral head was now removed without difficulty. The extremity was now rotated to 60 of external rotation. It was locked in position. Residual labrum was now debrided out. Serial reaming was performed of the acetabulum while Devin RENDON assisted holding an anterior retractor for exposure. Once we reached the appropriate size and a trial was position and fit nicely. The appropriate size was now chosen opened and made available. It was introduced into the acetabulum without difficulty. The C-arm/fluoroscopy was now brought into the operative field. We made sure we had a true AP pelvic view. We now under direct C-arm/fluoroscopy introduced into the acetabular component with appropriate version and inclination. I held the cup in appropriate position well Devin RENDON used a mallet to seat the acetabular component. I noted the component now to be well seated and stable. Acetabular cup introduce her was removed. The C-arm was pulled back. An appropriate liner was introduced and clicked into position. It was felt to be stable. At this point retractors were removed. The extremity was now placed into 135 external rotation with no traction. The leg was now dropped to the ground and adducted. Appropriate retractors were now positioned along the proximal femur. We also placed our femoral look into position. Additional capsular releasing was performed to gain access to the proximal femur. We now used a box osteotome. A canal finder was now utilized. Serial broaching was now performed with the assistance of Devin RENDON tapping the broaches down with a mallet while held the broach in appropriate rotation and position. This was done until we reached the appropriate size with good overall rotational stability. Appropriate calcar planing was performed. A trial head/neck was placed into position. The hip was now reduced. The C- arm/fluoroscopy was brought back into the operative field. I obtained an AP pelvis which demonstrated adequate leg length alignment. The trial components appeared appropriately sized and positioned. The C-arm/fluoroscopy was pulled back. Retractors were repositioned and the hip was dislocated. The leg was again taken down to the ground and adducted. Appropriate retractors were repositioned as well as the femoral hook. All trial components were removed. The femoral implant was opened along with the femoral head. The femoral implant was introduced on the appropriate handle into our pre-broached area. I held the component position well Devin RENDON used a mallet to seat the femoral component. The femoral component was now noted to be well seated and stable.. The femoral head was introduced with good positioning and fixation noted. Retractors were now removed. The hip was now reduced. There appeared be good positioning of the hip confirmed on intraoperative fluoroscopy. Spot films were obtained to document this. A second gram of TXA was given. The deep and superficial soft tissues were infiltrated with local analgesic. Bipolar cautery had been utilized intermittently through the procedure for hemostasis. The wound was irrigated copiously with pulse lavage mechanical irrigation. The fascia was repaired with Vicryl suture. The subcutaneous soft tissues were repaired in layers with Vicryl suture. The skin was approximated with pernio/Dermabond. Sterile dressings were applied. Patient was then awakened, transferred to a bed and taken to recovery in stable condition. Devin RENDON assisted with the complex procedure.
--- NOTE | 2022-09-01 14:15 | FL ---
EXAMINATION TYPE: FL guidance operating room, XR Hip Limited RT DATE OF EXAM: 09/01/2022 CLINICAL HISTORY: Right hip pain and osteoarthritis. TECHNIQUE: Fluoroscopy. Intraoperative limited views right hip. COMPARISON: Outside right hip x-rays May 09, 2022. FINDINGS: Fluoroscopic guidance was provided during right hip replacement procedure performed by Dr. Hdez. A total of 13 seconds of fluoroscopic time was utilized during the procedure and 3 spot images was acquired. Intraoperative images acquired show metallic hardware from total right hip arthroplasty satisfactory in position on frontal projection. IMPRESSION: As Above.
[2022-09-01 16:04] VITALS: RESP 20
--- NOTE | 2022-09-01 16:44 | P.ANPRN ---
Procedure Note - Anesthesia - Nerve Block Performed Right Erector Spinae Single Time Out Performed: Yes (1207) Date of Procedure: 09/01/22 Procedure Start Time: 12:07 Procedure Stop Time: 12:16 Location of Patient: PreOp Indication: Acute Post-Operative Pain, Dx/Pain Location (Right hip) Specifically requested for management of pain by DrIsmael: John Hdez Sedation Type: Sedate with meaningful contact maintained Preparation: Sterile Prep Position: Prone Catheter: None Needle Types: Pajunk Needle Gauge: 21 (100 mm) Ultrasound used to visualize needle placement: Yes Ultrasound used to observe medication spread: Yes Injectate: 0.5% Ropivacaine (see comment for volume) (30 cc + decadron 4 mg) Blood Aspirated: No Pain Paresthesia on Injection Noted: No Resistance on Injection: Normal Image Stored and Saved: Yes Events: Uneventful and Well Tolerated
[2022-09-01 18:24] VITALS: BP 108/70; PULSE 100
== END | disposition home health service (06) ==
LOC: OR 10:41
PROVIDERS: ATTEND Orthopaedic Surgery
DX: M16.11 Unilateral primary osteoarthritis, right hip (principal); G89.18 Other acute postprocedural pain; I10 Essential (primary) hypertension; K21.9 Gastro-esophageal reflux disease without esophagitis; E78.5 Hyperlipidemia, unspecified; E11.9 Type 2 diabetes mellitus without complications; F17.210 Nicotine dependence, cigarettes, uncomplicated; F32.A Depression, unspecified; G47.33 Obstructive sleep apnea (adult) (pediatric); F41.9 Anxiety disorder, unspecified; Z90.710 Acquired absence of both cervix and uterus; Z98.51 Tubal ligation status; Z90.6 Acquired absence of other parts of urinary tract; Z96.652 Presence of left artificial knee joint; Z98.49 Cataract extraction status, unspecified eye; Z79.02 Long term (current) use of antithrombotics/antiplatelets; Z79.83 Long term (current) use of bisphosphonates; Z79.899 Other long term (current) drug therapy; Z90.89 Acquired absence of other organs; Z79.84 Long term (current) use of oral hypoglycemic drugs
CPT/HCPCS: 27130; 97110; 97161; 64999; 86900; 86901; 86850; 88300; 87070; 73501; C1776; J2250; J1100; J0690 ×2; J2405; J1170

== ENCOUNTER → 2023-07-21 | Outpatient (CLI) | payer MEDICARE ==
[2023-07-21 11:18] LABS: ALT 19 U/L (8-44); AST 31 U/L (13-35); Albumin 4.5 d/dL (3.8-4.9); Albumin/Globulin Ratio 1.96 Ratio (1.60-3.17); Alkaline Phosphatase 84 U/L (41-126); BUN/Creat Ratio 19.62 Ratio (12.00-20.00); Blood Urea Nitrogen 15.7 mg/dL (9.0-27.0); Calcium 9.5 mg/dL (8.7-10.3); Carbon Dioxide 27.9 mmol/L (21.6-31.8); Chloride 102 mmol/L (96-109); Chol/HDL Ratio 4.02 Ratio; Globulin 2.3 d/dL (1.6-3.3); Glucose 114 mg/dL (70-110); LDL Cholesterol,Calculated 100.7 mg/dL (0.0-131.0); Potassium 4.8 mmol/L (3.5-5.5); Sodium 140 mmol/L (135-145); Total Bilirubin 0.3 mg/dL (0.3-1.2); Total Protein 6.8 d/dL (6.2-8.2)
[2023-07-21 11:19] LABS: Microalbumin Creatinine Ratio <15 mg/g Cr (0-30)
== END | disposition home or self-care (01) ==
LOC: LABWHC1 06:55
PROVIDERS: ATTEND Internal Medicine Endocrinology, Diabetes & Metabolism
DX: E11.65 Type 2 diabetes mellitus with hyperglycemia (principal)
CPT/HCPCS: 36415; 80053; 80061; 82043; 82570; 83036; 84443

== ENCOUNTER → 2023-07-22 | Outpatient (CLI) | payer MEDICARE ==
--- NOTE | 2023-07-23 08:34 | US ---
EXAMINATION TYPE: US thyroid st tissue head/neck DATE OF EXAM: 07/22/2023 COMPARISON: NONE CLINICAL INDICATION: Female, 67 years old with history of E04.2 NONTOXIC MULTINODULAR GOITER; Goiter GLAND SIZE: Right Lobe: 5.3 x 1.2 x 1.7 cm Overall Parenchyma: heterogenous Left Lobe: 5.2 x 1.1 x 1.4 cm Overall Parenchyma: heterogenous Isthmus Thickness: 0.21 cm NODULES RIGHT: # of nodules measured on right: 0 LEFT: # of nodules measured on left: 0 ISTHMUS: # of nodules measured in the isthmus: 0 Subcentimeter nodules throughout. IMPRESSION: Mild glandular enlargement and heterogeneity noted without distinct nodule. 2017 ACR TI-RADS LEVEL: *Highest TI-RADS level nodule reported
== END | disposition home or self-care (01) ==
LOC: RADUSWWP 16:05
PROVIDERS: ATTEND Internal Medicine Endocrinology, Diabetes & Metabolism
DX: E04.2 Nontoxic multinodular goiter (principal)
CPT/HCPCS: 76536

== ENCOUNTER → 2023-10-16 | Outpatient (CLI) | payer MEDICARE ==
[2023-10-16 15:34] LABS: HGB 12.9 g/dL (12.0-15.0); MCH 32.8 pg (27.0-32.0); MCHC 33.9 g/dL (32.0-37.0); MCV 96.7 FL (80.0-97.0); Mean Platelet Volume 9.7 FL (9.5-12.2); NRBC Per 100 WBC 0 X 10*3/uL (0.00-0.01); Platelet Count 300 X 10*3/uL (140-440); RBC 3.93 X 10*6/uL (4.10-5.20); RDW 12.7 % (11.5-14.5); WBC 5.63 X 10*3/uL (4.50-10.00)
[2023-10-16 16:03] LABS: Erythrocyte Sedimentation Rate 10 mm/Hr (0-30)
== END | disposition home or self-care (01) ==
LOC: LABWHC1 11:20
PROVIDERS: ATTEND Orthopaedic Surgery
DX: T84.84XA Pain due to internal orthopedic prosthetic devices, implants and grafts, initial encounter (principal); Y82.9 Unspecified medical devices associated with adverse incidents
CPT/HCPCS: 36415; 85027; 85652; 86140

== ENCOUNTER → 2023-10-28 | Outpatient (CLI) | payer MEDICARE ==
--- NOTE | 2023-10-28 14:39 | NM ---
EXAMINATION TYPE: NM bone 3 phase DATE OF EXAM: 10/28/2023 COMPARISON: 10/16/2023 radiographs. CLINICAL INDICATION: Female, 68 years old with history of M79.661 PAIN IN RIGHT LOWER LEG; Triple phase bone scintigraphy was performed following the injection of 25.7 mCi Tc 99m MDP. Immedia te images and 5.5 hours post injection images acquired. FINDINGS: Right hip arthroplasty changes. No evidence for abnormal uptake on, blood flow, blood pool or delayed imaging. There is no significant abnormal accumulation of radiotracer to suggest metastatic disease to the bon e or other significant abnormality. IMPRESSION: No scintigraphic evidence of prosthetic loosening or for infection.
== END | disposition home or self-care (01) ==
LOC: RADNMMAIN 07:25
PROVIDERS: ATTEND Orthopaedic Surgery
DX: M79.661 Pain in right lower leg (principal)
CPT/HCPCS: 78315; A9503

== ENCOUNTER → 2023-12-28 | Outpatient (CLI) | payer MEDICARE ==
--- NOTE | 2023-12-28 12:41 | XR ---
EXAMINATION TYPE: XR chest 2V DATE OF EXAM: 12/28/2023 COMPARISON: 08/19/2017 INDICATION: Cough, neck pain TECHNIQUE: Frontal and lateral views of the chest are obtained. FINDINGS: The heart size is normal. The pulmonary vasculature is normal. The lungs are clear. IMPRESSION: 1. No acute pulmonary process.
== END | disposition home or self-care (01) ==
LOC: RADXRMAIN 12:08
PROVIDERS: ATTEND Family Medicine
DX: R05.9 Cough, unspecified (principal); R22.1 Localized swelling, mass and lump, neck; Z86.16 Personal history of COVID-19
CPT/HCPCS: 71046

== ENCOUNTER → 2023-12-29 | Outpatient (CLI) | payer MEDICARE ==
--- NOTE | 2023-12-29 09:33 | US ---
EXAMINATION TYPE: US thyroid st tissue head/neck DATE OF EXAM: 12/29/2023 COMPARISON: CLINICAL INDICATION: Female, 68 years old with history of R22.0 LOCALIZED SWELLING, MASS AND LUMP, HE AD; Left lower neck/shoulder junction swelling since Thursday, patient states area is tender TECHNIQUE: Multiple sonographic images taken of patients area of conern FINDINGS: Patients area of concern scanned. Multiple hypoechoic lesions seen. 1: lymph node appearing with short axis = 0.8 cm and cortical thickness= 4.9 mm 2: hypoechoic lesion = 2.2 x 1.7 x 1.5 cm 3: hypoechoic lesion = 1.7 x 1.6 x 1.5 cm Contralateral image taken. IMPRESSION: Abnormal-appearing lymph nodes. Consider contrast CT of the neck for further evaluation.
== END | disposition home or self-care (01) ==
LOC: RADUSWWP 08:55
PROVIDERS: ATTEND Family Medicine
DX: R59.0 Localized enlarged lymph nodes (principal)
CPT/HCPCS: 76536

== ENCOUNTER → 2023-12-31 | Outpatient (CLI) | payer MEDICARE ==
--- NOTE | 2023-12-31 14:19 | MM ---
Reason for Exam: Clinical finding. Last mammogram was performed 9 year(s) and 6 month(s) ago. Indicated Problems: Other indicated problem of the left side for 1 Week(s). Patient History: Menarche at age 11. First Full-Term at age 16. Left ovary removed at age 37. Right ovary removed at age 37. Hysterectomy at age 37. Postmenopausal. Patient has history of breast feeding. Other cancer, age 56. Estrogen for 10 years from age 37 until age 47. Risk Values: Lorri 5 year model risk: 1.2%. NCI Lifetime model risk: 3.7%. Prior Study Comparison: 05/04/2007 Bilateral Screening Mammogram, [facility]. 07/05/2014 Bilateral Screening Mammogram, [facility]. 07/11/2014 Left Diagnostic Mammogram, [facility]. Tissue Density: The breast tissue is heterogeneously dense. This may lower the sensitivity of mammography. Findings: Analyzed By CAD. No significant mass, suspicious microcalcification, or other discrete abnormality is seen. Some prominent lymph nodes in the left axilla remain unchanged back to 2013. Overall Assessment: Benign, BI-RAD 2 Management: Screening Mammogram of both breasts in 1 year. . Results were given to the patient verbally at the time of exam. Patient should continue monthly self-breast exams. A clinical breast exam by your physician is recommended on an annual basis. This exam should not preclude additional follow-up of suspicious palpable abnormalities. Note on Lorri scores and lifetime risk: 1. A Lorri score greater than 3% is considered moderate risk. If this is the case, consider specialist referral to assess eligibility for a risk reducing agent. 2. If overall lifetime risk for the development of breast cancer is 20% or higher, the patient may qualify for future screening with alternating mammogram and breast MRI. Electronically signed and approved by: Alfredo Garcia M.D. Radiologist
== END | disposition home or self-care (01) ==
LOC: RADMAMWWP 13:21
PROVIDERS: ATTEND Family Medicine
DX: N63.0 Unspecified lump in unspecified breast (principal); R92.333 Mammographic heterogeneous density, bilateral breasts
CPT/HCPCS: 77062; 77066

== ENCOUNTER 2024-02-08 12:11 | Day surgery (SDC) | payer MEDICARE ==
[2024-02-08] MEDS: ALPRAZolam 0.25 MG TAB PO STA (12:56)
[2024-02-08 13:30] VITALS: TEMP 97.8
--- NOTE | 2024-02-08 14:22 | US ---
EXAMINATION TYPE: US biopsy lymph node DATE OF EXAM: 02/08/2024 2:11 PM CLINICAL INDICATION:Female, 68 years old with history of R59.9 ENLARGED LYMPH NODE; , thyroid nodule. COMPARISON: 12/29/2023. ATTENDING: Dr. Frederick Dixon PROCEDURE: Informed consent was obtained. The risks and benefits of the procedure were discussed with the patien t. The site was marked. Timeout procedure was performed Ultrasound imaging of the left neck demonstrate multiple lymph nodes. The patient was prepped, draped in the usual sterile fashion, and locally anesthetized with 1% lidoca ine. 3 x 20-gauge core needle biopsies were obtained of an large suspicious lymph node. Samples were sent to the pathology department for further analysis. Patient tolerated the procedure without incid ent and was sent home in stable condition. IMPRESSION: Successful ultrasound guided fine needle aspiration.
[2024-02-08 14:40] VITALS: BP 146/72; PULSE 78; RESP 18
== END 2024-02-08 14:05 | disposition home or self-care (01) ==
LOC: RADPROMAIN 12:11
PROVIDERS: ATTEND Internal Medicine Endocrinology, Diabetes & Metabolism
DX: L04.1 Acute lymphadenitis of trunk (principal); E04.2 Nontoxic multinodular goiter
CPT/HCPCS: 38505; 76942; 88305

== ENCOUNTER → 2024-02-18 | Outpatient (CLI) | payer MEDICARE ==
--- NOTE | 2024-02-18 15:05 | CT ---
EXAMINATION TYPE: CT soft tissue neck wo con DATE OF EXAM: 02/18/2024 HISTORY: Swollen lymph node on left side of neck x3mo. COMPARISON: 06/11/2021 CT DLP: 341.4 mGycm. Automated Exposure Control for Dose Reduction was Utilized. Multiple axial images were obtained from the skull base to the thoracic inlet without the use of IV c ontrast material. FINDINGS: There is been interval development of cluster of enlarged lymph nodes in the left medial supraclavicu lar area along the jugular vein largest of which measures 2.4 cm. There is a 13 mm adjacent lymph nod e and a 9.7 mm lymph node. The thyroid gland is unremarkable. The larynx including the thyroid, arytenoid and thyroid cartilages as well as the vocal cords are nor mal and symmetric. The tongue base, epiglottis, aryepiglottic folds and piriform sinuses are normal in symmetric. There is no pharyngeal or parapharyngeal soft tissue mass. The parotid and submandibular glands are normal and symmetric. The skull base is unremarkable. IMPRESSION: Interval development of lymphadenopathy in the lymph nodes at the base of the left neck in the medial supraclavicular region. The findings are suspicious for primary or secondary neoplasm.
== END | disposition home or self-care (01) ==
LOC: RADCTMAIN 14:19
PROVIDERS: ATTEND Family Medicine
DX: I89.8 Other specified noninfective disorders of lymphatic vessels and lymph nodes (principal); R22.1 Localized swelling, mass and lump, neck
CPT/HCPCS: 70490

== ENCOUNTER → 2025-02-13 | Outpatient (CLI) | payer MEDICARE ==
--- NOTE | 2025-02-13 07:26 | MM ---
Reason for Exam: Screening (asymptomatic). Last mammogram was performed 1 year(s) and 1 month(s) ago. Patient History: Menarche at age 11. First Full-Term at age 16. Left ovary removed at age 37. Right ovary removed at age 37. Hysterectomy at age 37. Postmenopausal. Patient has history of breast feeding. Other cancer, age 56. Estrogen for 10 years from age 37 until age 47. Risk Values: Lorri 5 year model risk: 1.3%. NCI Lifetime model risk: 3.5%. Prior Study Comparison: 07/05/2014 Bilateral Screening Mammogram, [facility]. 07/11/2014 Left Diagnostic Mammogram, [facility]. 12/31/2023 Bilateral MG 3D diag mammo w/cad MARCI, [facility]. Tissue Density: There are scattered areas of fibroglandular density. Findings: Analyzed By CAD. Some benign-appearing vascular calcification is seen bilaterally. There is no suspicious group of microcalcifications or new suspicious mass in either breast. Overall Assessment: Negative, BI-RAD 1 Management: Screening Mammogram of both breasts in 1 year. . Patient should continue monthly self-breast exams. A clinical breast exam by your physician is recommended on an annual basis. This exam should not preclude additional follow-up of suspicious palpable abnormalities. Note on Lorri scores and lifetime risk: 1. A Lorri score greater than 3% is considered moderate risk. If this is the case, consider specialist referral to assess eligibility for a risk reducing agent. 2. If overall lifetime risk for the development of breast cancer is 20% or higher, the patient may qualify for future screening with alternating mammogram and breast MRI. [facility], , 02/13/2025 7:23 AM. Electronically signed and approved by: Raimundo Chinchilla M.D.
== END | disposition home or self-care (01) ==
LOC: RADMAMWWP 06:48
PROVIDERS: ATTEND Family Medicine
DX: Z12.31 Encounter for screening mammogram for malignant neoplasm of breast (principal); R92.323 Mammographic fibroglandular density, bilateral breasts; R92.1 Mammographic calcification found on diagnostic imaging of breast; Z78.0 Asymptomatic menopausal state
CPT/HCPCS: 77067